=== PATIENT | male | born 1940 | race Caucasian/White ===

== ENCOUNTER 2018-05-20 01:49 | Outpatient (CLI) | payer MEDICARE, BC, SELFPAY ==
[2018-05-20 09:08] LABS: Hemoglobin A1C 6.1 % (4.5-6.2)
[2018-05-20 09:30] LABS: COMMENT (LAB VIEW ONLY) 95.18 mg/dL; Microalb ug/mg Crea 5.4 ug/mg Cr
[2018-05-20 09:34] LABS: ALT 33 U/L (12-78); AST 20 U/L (15-37); Alkaline Phosphatase 82 U/L (46-116); BUN 20 mg/dL (7-18); Bilirubin, Total 0.7 mg/dL (0.2-1.0); CREATININE 0.77 mg/dL (0.70-1.30); Calcium 8.9 mg/dL (8.5-10.1); Chloride 101 mmol/L (98-107); Cholesterol 134 mg/dL (50-200); Glucose 122 mg/dL (70-100); HDL Cholesterol 33 mg/dL (40-60); LDL CHOLESTEROL 84 mg/dL (<100); Potassium 4.4 mmol/L (3.5-5.1); Sodium 138 mmol/L (136-145); Triglyceride 86 mg/dL (30-150)
== END 2018-05-20 02:09 ==
PROVIDERS: PCP Family Medicine; Visit Provider Family Medicine
DX: E11.9 Type 2 diabetes mellitus without complications (principal); I10 Essential (primary) hypertension; E78.5 Hyperlipidemia, unspecified
CPT/HCPCS: 36415; 80053; 80061; 83721; 82043; 82570; 83036

== ENCOUNTER 2018-06-03 00:49 | Outpatient (CLI) | payer MEDICARE, BC, SELFPAY ==
--- NOTE | 2018-06-03 13:25 | MERGE_ITS ---
*[facility]* *[facility]* [address] [place] [address] Date of study: 06/03/2018 Transthoracic Echocardiography M-mode, complete 2D, complete spectral Doppler, and color Doppler *STUDY CONCLUSIONS* Summary: 1. Left ventricle: The cavity size was normal. Wall thickness was increased in a pattern of mild LVH. Systolic function was normal. The estimated ejection fraction was 60-65%. Wall motion was normal; there were no regional wall motion abnormalities. Findings consistent with diastolic dysfunction. Doppler parameters are consistent with high ventricular filling pressure. 2. Aortic valve: Trileaflet; mildly thickened, mildly calcified leaflets. There was mild stenosis. Peak velocity (S): 2.3m/sec. Mean gradient (S): 10.8mm Hg. Valve area (VTI): 1.6cm^2. 3. Mitral valve: Mildly calcified annulus. Mildly thickened leaflets. There was mild regurgitation. 4. Left atrium: The atrium was mildly dilated. 5. Right ventricle: The cavity size was normal. Wall thickness was normal. Systolic function was normal. *PATIENT PRESENTATION* Height: 177.8cm ((70in) ) S/D Pressure: 137 / 65 Weight: 85.3kg ((187.6lb) ) BSA: 2.07m^2 Test start time: 01:38 PM. Test stop time: 02:38 PM. ORDERING Domonique Garcia REFERRING Domonique Garcia PERFORMING Unknown PERFORMING [facility] LEAD RECREATION ASSISTANT RT Brianne KumarR)(OLGA)SHARAN *PROCEDURE DATA* Procedure information: The patient was identified by two identifiers. This study was interpreted by [facility]. Pertinent images and digital data are archived for permanent storage and are available for subsequent review. Comparison was made to the study of 02/27/2012. Study status: Routine. Transthoracic echocardiography. M-mode, complete 2D, complete spectral Doppler, and color Doppler. A Transthoracic Echocardiogram was performed. Scanning was performed from the parasternal, apical, subcostal, and suprasternal notch acoustic windows. Images were obtained using an [id number] cardiac ultrasound machine. Image quality was adequate. Study completion: The patient tolerated the procedure well. There were no complications. History: PMH: SOB, REYES, HTN. *CARDIAC ANATOMY* Left ventricle: The cavity size was normal. Wall thickness was increased in a pattern of mild LVH. Systolic function was normal. The estimated ejection fraction was 60-65%. Wall motion was normal; there were no regional wall motion abnormalities. Findings consistent with diastolic dysfunction. Doppler parameters are consistent with high ventricular filling pressure. Aortic valve: Trileaflet; mildly thickened, mildly calcified leaflets. Valve mobility was restricted. Doppler: There was mild stenosis. There was no significant regurgitation. VTI ratio of LVOT to aortic valve: 0.5. Valve area (VTI): 1.6cm^2. Indexed valve area (VTI): 0.8cm^2/m^2. Peak velocity ratio of LVOT to aortic valve: 0.43. Valve area (Vmax): 1.3cm^2. Indexed valve area (Vmax): 0.6cm^2/m^2. Mean velocity ratio of LVOT to aortic valve: 0.46. Valve area (Vmean): 1.4cm^2. Indexed valve area (Vmean): 0.7cm^2/m^2. Mean gradient (S): 10.8mm Hg. Peak gradient (S): 21mm Hg. Aorta: Aortic root: The aortic root was normal in size. Ascending aorta: The ascending aorta was normal in size. Mitral valve: Mildly calcified annulus. Mildly thickened leaflets. Mobility was not restricted. Doppler: Transvalvular velocity was within the normal range. There was no evidence for stenosis. There was mild regurgitation. Valve area by pressure half-time: 4.1cm^2. Indexed valve area by pressure half-time: 2cm^2/m^2. Peak gradient (D): 4.7mm Hg. Left atrium: The atrium was mildly dilated. Right ventricle: The cavity size was normal. Wall thickness was normal. Systolic function was normal. Pulmonic valve: Structurally normal valve. Doppler: Transvalvular velocity was within the normal range. There was no evidence for stenosis. There was no significant regurgitation. Peak gradient (S): 8.4mm Hg. Tricuspid valve: Structurally normal valve. Doppler: Transvalvular velocity was within the normal range. There was no evidence for stenosis. There was trivial regurgitation. Pulmonary artery: Pulmonary systolic pressure was within the normal range, in the range of 25mm Hg to 30mm Hg. Right atrium: The atrium was normal in size. Pericardium: There was no pericardial effusion. Systemic veins: Inferior vena cava: Not well visualized. The vessel was patent and normal in size. The respirophasic diameter changes were blunted (less than 50%). Baseline ECG: Normal sinus rhythm. Measurements Left ventricle Value Reference LV ID, ED, PLAX 4.1 cm 3.5 - 6.0 LV ID, ES, PLAX 2.8 cm 2.1 - 4.0 LV PW thickness, ED, PLAX 1.3 cm LV end-diastolic volume, 1-p A2C 66 ml LV ejection fraction, 1-p A2C 63 % LV end-diastolic volume, 1-p A4C 58 ml LV ejection fraction, 1-p A4C 55 % LV e', lateral 0.084 m/sec LV E/e', lateral 13 LV e', medial 0.063 m/sec LV E/e', medial 17 LV e', average 0.073 m/sec LV E/e', average 15 Ventricular septum Value Reference IVS thickness, ED, PLAX 1.3 cm LVOT Value Reference LVOT ID, A-P 2.0 cm LVOT area 3.1 cm^2 LVOT peak velocity, S 0.99 m/sec LVOT mean velocity, S 0.72 m/sec LVOT VTI, S 21.7 cm LVOT peak gradient, S 3.9 mm Hg LVOT mean gradient, S 2.3 mm Hg Stroke volume (SV), LVOT DP 67 ml Stroke index (SV/bsa), LVOT DP 32 ml/m^2 Aortic valve Value Reference Aortic valve peak velocity, S 2.3 m/sec Aortic valve mean velocity, S 1.56 m/sec Aortic valve VTI, S 43.0 cm Aortic mean gradient, S 10.8 mm Hg Aortic peak gradient, S 21 mm Hg VTI ratio, LVOT/AV 0.5 Aortic valve area, VTI 1.6 cm^2 Velocity ratio, peak, LVOT/AV 0.43 Aortic valve area, peak velocity 1.3 cm^2 Velocity ratio, mean, LVOT/AV 0.46 Aortic valve area, mean velocity 1.4 cm^2 Aortic valve area/bsa, mean velocity 0.7 cm^2/m^2 Aorta Value Reference Aortic root ID, ED 3.4 cm Ascending aorta ID, A-P, S 3.2 cm Left atrium Value Reference LA ID, A-P, ES 4.9 cm LA ID/bsa, A-P (H) 2.4 cm/m^2 <=2.2 LA area, ES, A4C 23.2 cm^2 8.8 - 23.4 LA area, ES, A2C 19 cm^2 LA volume/bsa, ES, 1-p A4C 37 ml/m^2 LA volume, ES, 2-p 62 ml LA volume/bsa, ES, 2-p 30 ml/m^2 LA/aortic root ratio 1.44 Mitral valve Value Reference Mitral E-wave peak velocity 1.08 m/sec Mitral A-wave peak velocity 1.08 m/sec Mitral deceleration time 186 ms 150 - 230 Mitral pressure half-time 54 ms Mitral peak gradient, D 4.7 mm Hg Mitral E/A ratio, peak 1 Mitral valve area, PHT, DP 4.1 cm^2 Pulmonary veins Value Reference Pulmonary vein peak velocity, S 0.6 m/sec Pulmonary vein peak velocity, D 0.68 m/sec Pulmonary vein velocity ratio, peak, 0.87 S/D Pulmonary vein A-wave reversal peak 0.42 m/sec velocity Pulmonary vein A-wave reversal 160 ms duration Tricuspid valve Value Reference Tricuspid regurg peak velocity 2.5 m/sec Tricuspid peak RV-RA gradient 24.5 mm Hg Right atrium Value Reference RA area, ES, A4C 17.2 cm^2 8.3 - 19.5 Pulmonic valve Value Reference Pulmonic peak gradient, S 8.4 mm Hg Legend: (L) and (H) luli values outside specified reference range. I have personally reviewed the images and have reviewed and edited the reported findings. Electronically signed by Jame Middleton 06/03/2018 15:45
== END 2018-06-03 01:09 ==
PROVIDERS: PCP Family Medicine; Visit Provider Family Medicine
DX: I10 Essential (primary) hypertension (principal); R06.02 Shortness of breath; R06.09 Other forms of dyspnea; I35.0 Nonrheumatic aortic (valve) stenosis; I34.0 Nonrheumatic mitral (valve) insufficiency; I50.30 Unspecified diastolic (congestive) heart failure
CPT/HCPCS: 93306

== ENCOUNTER 2018-08-03 10:59 | Emergency (ER) | payer MEDICARE, BC, SELFPAY ==
[2018-08-03 11:07] VITALS: BP 160/87; PULSE 102; RESP 16; TEMP 37; O2SAT 96
--- NOTE | 2018-08-03 11:24 | W.ED.GENAD ---
Discharge Plan Disposition Patient Disposition: HOME Discharge Details Chief Complaint: Orthopedic Clinical Impression: Acute pain of left foot Primary Care Provider: Domonique Garcia ED Provider: Johnson Saavedra Home Meds and New Rx's Prescriptions: New prednisone 20 mg tablet 40 mg PO DAILY Qty: 8 RF: 0 colchicine 0.6 mg tablet 0.6 mg PO TID PRN PRN (Reason: gout) Qty: 15 RF: 0 Continued Gold Shepherd Triple Action 226 GM lotion 226 gm Topical DAILY PRNRF: 0 blood-glucose meter 1 EACH misc 1 ea Miscellaneous DAILY Qty: 1 RF: 0 triamcinolone acetonide 80 GM ointment 5 gm Topical BID PRNQty: 80 RF: 2 fluorouracil 40 GM cream 40 gm Topical BID RF: 0 cholecalciferol (vitamin D3) [Vitamin D3] 2,000 UNIT capsule 2,000 unit PO DAILY RF: 0 glipizide 5 MG tablet extended release 24hr 2 tab-cap PO DAILY Qty: 180 RF: 12 Ketoconazole 15 GM CREAM..G. 15 gm Topical PRN RF: 0 lisinopril 2.5 MG tablet 2.5 mg PO DAILY Qty: 90 RF: 11 atorvastatin 40 MG tablet 40 mg PO HS Qty: 90 RF: 12 furosemide 20 MG tablet 20 mg PO DAILY Qty: 90 RF: 12 metformin 500 MG tablet extended release 24hr 1,000 mg PO BID Qty: 360 RF: 12 blood sugar diagnostic [Blood Glucose Test] strip 1 ea Miscellaneous BID Qty: 100 RF: 3 lancets [Lancets,Ultra Thin] 26 gauge misc 1 ea Miscellaneous DAILY Qty: 100 RF: 4 Discharge Instructions Instructions: Gout (ED), Foot Sprain (ED) Additional Instructions: Please take colchicine as prescribed. Take prednisone as prescribed. Please contact your primary care physician to arrange follow-up. Return to the ER for any worsening or new concerning symptoms including increased pain, redness or inflammation. Referrals: Domonique Garcia MD, [place] [Primary Care Provider] - Medical Decision Making 77yo m with remote history of gout, here with left lateral foot pain and inflammation after what sounds like a mild hyper plantarflexion injury. X-ray of the foot reviewed and interpreted by me: No fracture present. History and exam not consistent with infectious process. Suspect inflammatory arthritis vs sprain. Patient has history of gout. Will treat with ortho shoe, crutches, prednisone and colchicine. ESR nildly elevated. CRP and WBC nl. Uric acid pending - lab equipment malfunctioning. Will have patient follow-up with PCP. Burst prednisone and colchine prescribed. Usual and customary discharge instructions were provided. HPI General Mode of arrival: ambulatory. Date/Time Provider Initiated Documentation: 08/03/18 11:11. Limitations to Documentation: no limitations. Information obtained by: patient. HPI Narrative: 77-year-old male with history of diabetes that is well controlled, peripheral neuropathy, remote history of gout, here with left foot pain. Patient notes that he believes he injured his foot a couple days ago. He states he was on his knees working and when he stood up he thinks he hyper plantarflexed his foot. He did not have significant pain initially. Following night he developed pain in his dorsal lateral right foot. Pain is persisted. Pain is worse with walking and has been using a cane. He has some associated swelling in the area. Related Data Home Medications Medication Instructions Recorded Confirmed Gold Shepherd Triple Action 226 gm TOPICAL DAILY PRN 04/20/13 08/03/18 blood-glucose meter #1 ea 12/21/14 05/25/18 triamcinolone acetonide 5 gm TOPICAL BID PRN #80 ml 01/22/16 08/03/18 fluorouracil 40 gm TOPICAL BID script 03/25/16 08/03/18 cholecalciferol (vitamin D3) 2,000 unit PO DAILY 11/18/16 08/03/18 [Vitamin D3] glipizide 2 tab-cap PO DAILY #180 tab-cap 10/02/17 08/03/18 Ketoconazole 15 gm TOPICAL PRN 11/17/17 08/03/18 atorvastatin 40 mg PO HS #90 tab-cap 11/17/17 08/03/18 furosemide 20 mg PO DAILY #90 tab-cap 11/17/17 08/03/18 lisinopril 2.5 mg PO DAILY #90 tab-cap 11/17/17 08/03/18 metformin 1,000 mg PO BID #360 tab-cap 11/17/17 08/03/18 blood sugar diagnostic strips #100 strip 05/26/18 lancets 26 gauge #100 ea 05/26/18 colchicine 0.6 mg PO TID PRN PRN #15 tab 01/21/19 prednisone 40 mg PO DAILY #8 tab 08/03/18 Previous Rx's Medication Instructions Recorded glipizide 2 tab-cap PO DAILY #180 tab-cap 10/02/17 atorvastatin 40 mg PO HS #90 tab-cap 11/17/17 furosemide 20 mg PO DAILY #90 tab-cap 11/17/17 lisinopril 2.5 mg PO DAILY #90 tab-cap 11/17/17 metformin 1,000 mg PO BID #360 tab-cap 11/17/17 blood sugar diagnostic strips #100 strip 05/26/18 lancets 26 gauge #100 ea 05/26/18 colchicine 0.6 mg PO TID PRN PRN #15 tab 08/03/18 prednisone 40 mg PO DAILY #8 tab 08/03/18 Allergies Allergy/AdvReac Type Severity Reaction Status Date / Time naproxen Allergy Severe INFLAMMED Unverified 08/03/18 11:10 LIVER diazepam Allergy Unknown Unverified 08/03/18 11:10 General Stated Complaint: Orthopedic SHANNON: 4 Review of Systems Constitutional Denies fever(s) Musculoskeletal Reports as per [facility]PI [facility] Medical History Neck pain (Chronic 06/12/04) Low back pain (Chronic 06/12/01) Lactose intolerance (Chronic 11/15/10) Idiopathic peripheral neuropathy (Chronic) Hyperlipidemia (Chronic) Gastritis (Chronic 02/27/15) Family history of GI malignancy (Chronic) Essential hypertension (Chronic 04/07/13) Diverticulosis of colon without diverticulitis (Chronic) Diabetes mellitus (Chronic 12/03/12) Chronic ischemic heart disease (Chronic 10/30/12) Cervical disc prolapse with radiculopathy (Chronic) Hylton's esophagus (Chronic) Surgical History AORTIC BYPASS (~1989) Extraction of cataract (~08/2013) Repair of inguinal hernia (~1983) Spinal Fusion (~2011) Family History Mother Personal history of malignant neoplasm Heart disease Father Essential hypertension Heart disease Hyperlipidemia Sister Diabetes Essential hypertension Personal history of malignant neoplasm Heart disease Mental disorder Sister Diabetes Essential hypertension Heart disease Hyperlipidemia Brother Alcohol abuse Brother Heart disease Daughter Hyperlipidemia Social History household members: spouse duration: < 15 minutes/day Smoking/Tobacco Use Status: Never alcohol intake: current Alcohol type: beer and wine substance use type: does not use tequila/gnosticism: Jainism special tequila needs: No Exam Const General: cooperative and no acute distress HENMT Mouth: moist mucous membranes Eyes Conjunctivae: normal conjunctivae Sclera: normal sclerae Resp Auscultation: clear to auscultation bilaterally, no rales, no rhonchi and no wheezes Cardio Jugular venous pressure: no JVD Rate: regular rate and not tachycardic Rhythm: regular rhythm GI Palpation: soft, not firm, no guarding, no masses, not rigid and nontender Skin General skin exam: erythema (over base left 5th MT) Neuro General: alert, awake, oriented x3 and tone normal Extrem General: no edema Left lower extremity: foot Details: tenderness Location: of the lateral foot Location: at the base of the 5th metatarsal, vascular exam Details: dorsalis pedis pulse present (strong) and other (ttp lateral foot over 5th MT with mild swelling ) Course Vital Signs Temperature 37 C 08/03/18 11:07 Pulse 102 H 08/03/18 11:07 Respiratory Rate 16 08/03/18 11:07 Blood Pressure 160/87 H 08/03/18 11:07 Pulse Oximetry 96 08/03/18 11:07 Temperature 37 C 08/03/18 11:07 Temperature Source Skin 08/03/18 11:07 Pulse 102 H 08/03/18 11:07 Respiratory Rate 16 08/03/18 11:07 Respiratory Effort Non-Labored 08/03/18 11:07 Blood Pressure 160/87 H 08/03/18 11:07 Pulse Oximetry 96 08/03/18 11:07 Oxygen Delivery Method Room Air 08/03/18 11:07 Oxygen Flow Rate 0 08/03/18 11:07 Pain Level 10 08/03/18 11:13
[2018-08-03] MEDS: Ibuprofen 600 MG TAB PO (11:34)
--- NOTE | 2018-08-03 11:35 | NUR.NOTE ---
patient medciated per MD order Nursing Note:
--- NOTE | 2018-08-03 11:46 | DI.RAD_ITS ---
SYMPTOMS/DIAGNOSIS: PAIN AND ERYTHEMA OVER 5TH METATARSAL, MILD TRAUMA, REMOTE GOUT LEFT FOOT: Three views. No acute fracture or dislocation is identified. IMPRESSION: No acute abnormality.
--- NOTE | 2018-08-03 12:15 | NUR.NOTE ---
glucose 150mg/dL Nursing Note:
[2018-08-03] MEDS: predniSONE 20 MG TAB 40 MG PO (12:21)
[2018-08-03] MEDS: Colchicine 0.6 MG TAB PO (12:21)
--- NOTE | 2018-08-03 12:22 | NUR.NOTE ---
patient medicated per MD order Nursing Note:
[2018-08-03 12:55] LABS: Abs Immature Grans 0.01 k/cumm (0.0-0.09); Absolute Basophil Count 0.03 k/cumm (0.0-0.2); Absolute Eosinophil Count 0.26 k/cumm (0.0-0.7); Absolute Lymphocyte Count 1.13 k/cumm (1.2-3.4); Absolute Monocyte Count 0.67 k/cumm (0.11-0.7); Absolute Neutrophil Count 4.44 k/cumm (1.2-6.7); Basophils % 0.5; HGB 14.6 g/dL (13.5-17.5); Immature Grans % 0.2; Lymphocytes % 17.3; Mean Corp. HGB Concentration 34.8 g/dL (32.0-36.0); Mean Corpuscular Hemoglobin 32.2 pg (27.0-33.0); Mean Corpuscular Volume 92.7 fL (80-95); Mean Platelet Volume 10.1 fL (8.0-11.0); Monocytes % 10.2; Neutrophils % 67.8; Platelet Count 189 x1000/uL (130-400); RBC 4.53 m/cumm (4.50-6.00); RBC Distribution Width 12.6 % (11.8-14.1); White Blood Cell Count 6.54 k/cumm (4.4-10.8)
[2018-08-03 12:56] LABS: C-Reactive Protein 0.09 mg/dL (0.0-0.3)
[2018-08-03 13:33] LABS: ESR 22 MM/HR (1-20)
[2018-08-03 14:31] LABS: Uric Acid 8.6 mg/dL (3.5-7.2)
== END 2018-08-03 13:52 | disposition home or self-care (01) ==
PROVIDERS: Emergency Provider Student in an Organized Health Care Education/Training Program; PCP Family Medicine
DX: M79.672 Pain in left foot (principal); X50.9XXA Other and unspecified overexertion or strenuous movements or postures, initial encounter; E11.9 Type 2 diabetes mellitus without complications; Z79.84 Long term (current) use of oral hypoglycemic drugs; I10 Essential (primary) hypertension
CPT/HCPCS: 36415; 82947; 85652; 99284; 73630; 84550; 85025; 86140; E0114; J7512

== ENCOUNTER 2018-09-15 01:28 | Outpatient (CLI) | payer MEDICARE, BC, SELFPAY ==
[2018-09-15 09:08] LABS: Uric Acid 4.6 mg/dL (3.5-7.2)
[2018-09-15 09:23] LABS: Hemoglobin A1C 6.2 % (4.5-6.2)
== END 2018-09-15 01:48 ==
PROVIDERS: PCP Family Medicine; Visit Provider Family Medicine
DX: E11.9 Type 2 diabetes mellitus without complications (principal); M10.9 Gout, unspecified
CPT/HCPCS: 36415; 83036; 84550

== ENCOUNTER 2018-11-19 02:09 | Outpatient (CLI) | payer MEDICARE, BC, SELFPAY ==
[2018-11-19 09:16] LABS: ALT 33 U/L (12-78); AST 16 U/L (15-37); Albumin 3.9 g/dL (3.4-5.0); Alkaline Phosphatase 74 U/L (46-116); Anion Gap 8.5 mmol/L (3-11); BUN 20 mg/dL (7-18); Bilirubin, Total 0.5 mg/dL (0.2-1.0); CO2 29.5 mmol/L (21.0-32.0); CREATININE 0.65 mg/dL (0.70-1.30); Calcium 8.9 mg/dL (8.5-10.1); Chloride 102 mmol/L (98-107); Glucose 101 mg/dL (70-100); Potassium 4.3 mmol/L (3.5-5.1); Sodium 140 mmol/L (136-145); Total Protein 6.8 g/dL (6.4-8.2); Uric Acid 3.6 mg/dL (3.5-7.2)
== END 2018-11-19 02:29 ==
PROVIDERS: PCP Family Medicine; Visit Provider Family Medicine
DX: E11.9 Type 2 diabetes mellitus without complications (principal); E78.5 Hyperlipidemia, unspecified; M10.9 Gout, unspecified
CPT/HCPCS: 36415; 80053; 83036; 84550

== ENCOUNTER 2019-03-17 01:48 | Outpatient (CLI) | payer MEDICARE, BC, SELFPAY ==
[2019-03-17 09:03] LABS: Hemoglobin A1C 6.5 % (4.5-6.2)
[2019-03-17 10:07] LABS: Uric Acid 4.2 mg/dL (3.5-7.2)
== END 2019-03-17 02:08 ==
PROVIDERS: PCP Family Medicine; Visit Provider Family Medicine
DX: E11.9 Type 2 diabetes mellitus without complications (principal); M10.9 Gout, unspecified
CPT/HCPCS: 36415; 83036; 84550

== ENCOUNTER → 2019-12-31 10:27 | Outpatient (BNVA) | payer MEDICARE, BC, SELFPAY | PROVIDERS: PCP Family Medicine; Referring Provider Family Medicine; Visit Provider Urology | DX: R69 Illness, unspecified (principal) ==

== ENCOUNTER 2019-12-31 12:02 | Outpatient (CLI) | payer MEDICARE, BC, SELFPAY | END 2019-12-31 12:22 | PROVIDERS: PCP Family Medicine; Visit Provider Urology | DX: R33.8 Other retention of urine (principal); Z46.6 Encounter for fitting and adjustment of urinary device | CPT/HCPCS: 51702; 99201; 99213 ==

== ENCOUNTER 2019-12-31 12:16 | Outpatient (REF) | payer MEDICARE, BC, SELFPAY ==
[2019-12-31 12:38] LABS: Hemoglobin A1C 6.3 % (3.8-5.6)
[2019-12-31 12:48] LABS: ALT 35 U/L (16-63); AST 17 U/L (15-37); Albumin 3.9 g/dL (3.4-5.0); Alkaline Phosphatase 81 U/L (46-116); Anion Gap 12.2 mmol/L (3-11); BUN 12 mg/dL (7-18); Bilirubin, Total 0.7 mg/dL (0.2-1.0); CO2 25.8 mmol/L (21.0-32.0); CREATININE 0.67 mg/dL (0.70-1.30); Calcium 8.4 mg/dL (8.5-10.1); Chloride 103 mmol/L (98-107); Glucose 136 mg/dL (74-106); Potassium 3.1 mmol/L (3.5-5.1); Sodium 141 mmol/L (136-145); Total Protein 7.3 g/dL (6.4-8.2)
[2019-12-31 13:01] LABS: Cholesterol 186 mg/dL (<200); HDL Cholesterol 34 mg/dL (40-60); Triglyceride 93 mg/dL (<150)
[2019-12-31 13:02] LABS: Calculated LDL 134 mg/dL (<100)
== END 2019-12-31 12:36 ==
LOC: LBN 12:16
PROVIDERS: Urology; PCP Family Medicine; Visit Provider Family Medicine
DX: R33.8 Other retention of urine (principal); E11.9 Type 2 diabetes mellitus without complications; I10 Essential (primary) hypertension; I25.9 Chronic ischemic heart disease, unspecified
CPT/HCPCS: 80053; 80061; 83036; 84550

== ENCOUNTER → 2020-01-03 09:22 | Outpatient (BNVA) | payer MEDICARE, BC, SELFPAY | PROVIDERS: PCP Family Medicine; Referring Provider Family Medicine; Visit Provider Nurse Practitioner Gerontology | DX: R33.8 Other retention of urine (principal); E11.42 Type 2 diabetes mellitus with diabetic polyneuropathy; Z79.84 Long term (current) use of oral hypoglycemic drugs | CPT/HCPCS: 99204; 99215 ==

== ENCOUNTER → 2020-01-11 08:26 | Outpatient (BNVA) | payer MEDICARE, BC, SELFPAY | PROVIDERS: PCP Family Medicine; Referring Provider Family Medicine; Visit Provider Nurse Practitioner Gerontology | DX: R33.8 Other retention of urine (principal); Z46.6 Encounter for fitting and adjustment of urinary device | CPT/HCPCS: 99213 ==

== ENCOUNTER → 2020-02-08 08:24 | Outpatient (BNVA) | payer MEDICARE, BC, SELFPAY | PROVIDERS: PCP Family Medicine; Referring Provider Family Medicine; Visit Provider Urology | DX: R33.8 Other retention of urine (principal); N47.5 Adhesions of prepuce and glans penis | CPT/HCPCS: 99213 ==

== ENCOUNTER → 2020-02-24 12:49 | Outpatient (BNVA) | payer MEDICARE, BC, SELFPAY | PROVIDERS: PCP Family Medicine; Referring Provider Family Medicine; Visit Provider Nurse Practitioner Gerontology | DX: N47.5 Adhesions of prepuce and glans penis (principal); R33.8 Other retention of urine; E11.9 Type 2 diabetes mellitus without complications; R60.0 Localized edema | CPT/HCPCS: 99213 ==

== ENCOUNTER → 2020-04-13 10:54 | Outpatient (BNVA) | payer MEDICARE, BC, SELFPAY | PROVIDERS: PCP Family Medicine; Referring Provider Family Medicine; Visit Provider Physical Therapy Assistant | DX: K22.70 Barrett's esophagus without dysplasia (principal); Z86.010 Personal history of colon polyps; E11.9 Type 2 diabetes mellitus without complications; I10 Essential (primary) hypertension; Z79.84 Long term (current) use of oral hypoglycemic drugs | CPT/HCPCS: 99213 ==

== ENCOUNTER 2020-04-24 01:33 | Outpatient (CLI) | payer MEDICARE, BC, SELFPAY ==
[2020-04-25 17:37] LABS: COVID-19 RT-PCR Result NEGATIVE (Negative)
== END 2020-04-24 01:53 ==
PROVIDERS: PCP Family Medicine; Visit Provider Surgery
DX: Z11.59 Encounter for screening for other viral diseases (principal); Z01.818 Encounter for other preprocedural examination
CPT/HCPCS: U0003

== ENCOUNTER 2020-05-22 02:11 | Outpatient (CLI) | payer MEDICARE, BC, SELFPAY ==
[2020-05-22 12:40] LABS: ALT 38 U/L (16-63); AST 22 U/L (15-37); Albumin 3.8 g/dL (3.4-5.0); Alkaline Phosphatase 81 U/L (46-116); BUN 14 mg/dL (7-18); Bilirubin, Total 0.7 mg/dL (0.2-1.0); CREATININE 0.82 mg/dL (0.70-1.30); Calcium 8.1 mg/dL (8.5-10.1); Chloride 103 mmol/L (98-107); Glucose 173 mg/dL (74-106); Potassium 3.5 mmol/L (3.5-5.1); Sodium 142 mmol/L (136-145); Total Protein 6.8 g/dL (6.4-8.2); Uric Acid 4.3 mg/dL (3.5-7.2)
[2020-05-22 12:44] LABS: Hemoglobin A1C 6.6 % (<5.7)
== END 2020-05-22 02:31 ==
PROVIDERS: PCP Family Medicine; Visit Provider Family Medicine
DX: I10 Essential (primary) hypertension (principal); E11.9 Type 2 diabetes mellitus without complications; M10.9 Gout, unspecified
CPT/HCPCS: 36415; 80053; 83036; 84550

== ENCOUNTER 2020-05-29 14:32 | Outpatient (REF) | payer MEDICARE, BC, SELFPAY ==
[2020-05-29 21:54] LABS: COMMENT (LAB VIEW ONLY) 112.82 mg/dL; Microalb ug/mg Crea 5.2 ug/mg Cr
== END 2020-05-29 14:52 ==
LOC: LBN 14:32
PROVIDERS: PCP Family Medicine; Visit Provider Family Medicine
DX: E11.9 Type 2 diabetes mellitus without complications (principal)
CPT/HCPCS: 82043; 82570

== ENCOUNTER 2020-05-30 09:06 | Outpatient (CLI) | payer MEDICARE, BC, SELFPAY | END 2020-05-30 09:26 | PROVIDERS: PCP Family Medicine; Visit Provider Family Medicine | DX: R00.2 Palpitations (principal) | CPT/HCPCS: 93225 ==

== ENCOUNTER 2020-06-01 12:58 | Outpatient (CLI) | payer MEDICARE, BC, SELFPAY ==
--- NOTE | 2020-06-01 15:06 | W.HOLTRPT ---
Date of service: 06/01/20 Time of Service: 15:06 Holter Monitor Report Referring Provider:: Domonique Garcia Indications:: Palpitations Holter Monitor Note: This is a 48-hour Holter monitor, reportedly ordered for palpitations The rhythm throughout was atrial fibrillation; average heart rate was 65, minimum 53 and maximum 96 There were rare ventricular ectopic beats Longest R-R interval was 2.63 seconds No patient symptoms were reported
== END 2020-06-01 13:18 ==
PROVIDERS: PCP Family Medicine; Visit Provider Family Medicine
DX: R00.2 Palpitations (principal); I48.91 Unspecified atrial fibrillation
CPT/HCPCS: 93227; 93226

== ENCOUNTER 2021-01-24 15:11 | Outpatient (CLI) | payer MEDICARE, BC, SELFPAY ==
[2021-01-24 09:32] LABS: Hemoglobin A1C 6.7 % (<5.7)
[2021-01-24 09:49] LABS: ALT 29 U/L (16-63); AST 13 U/L (15-37); Albumin 3.7 g/dL (3.4-5.0); Alkaline Phosphatase 84 U/L (46-116); Anion Gap 8.3 mmol/L (3-11); BUN 19 mg/dL (7-18); Bilirubin, Total 0.6 mg/dL (0.2-1.0); CO2 27.7 mmol/L (21.0-32.0); CREATININE 0.9 mg/dL (0.70-1.30); Chloride 105 mmol/L (98-107); Glucose 130 mg/dL (74-106); Potassium 4.7 mmol/L (3.5-5.1); Sodium 141 mmol/L (136-145); Total Protein 6.8 g/dL (6.4-8.2); Uric Acid 4.3 mg/dL (3.5-7.2)
[2021-01-24 20:55] LABS: Calculated LDL 90 mg/dL (<100); Cholesterol 141 mg/dL (<200); HDL Cholesterol 31 mg/dL (40-60); Triglyceride 100 mg/dL (<150)
== END 2021-01-24 15:12 | disposition home or self-care (01) ==
LOC: LBO 15:13
PROVIDERS: PCP Family Medicine; Visit Provider Family Medicine
DX: E11.9 Type 2 diabetes mellitus without complications (principal); I10 Essential (primary) hypertension; M10.9 Gout, unspecified; I48.91 Unspecified atrial fibrillation; I25.9 Chronic ischemic heart disease, unspecified; E78.5 Hyperlipidemia, unspecified
CPT/HCPCS: 36415; 80053; 80061; 83036; 84550

== ENCOUNTER 2021-02-08 09:39 | Outpatient (CLI) | payer MEDICARE, BC, SELFPAY ==
--- NOTE | 2021-02-08 09:30 | DI.CT_ITS ---
Exam(s) CT HEAD WO EXAM: CT HEAD WO CLINICAL HISTORY: weaknees, dizziness R53.1 WEAKNESS. TECHNIQUE: Imaging Protocol: Axial computed tomography images with coronal and sagittal reformatted images were created and reviewed COMPARISON: No exams were available for comparison FINDINGS: There are no skull fractures. There is complete opacification of the maxillary sinus. There is muc osal thickening also evident in the right maxillary sinus. No bone destruction evident. Sphenoid si nuses are clear as are the ethmoid air cells and frontal sinuses. Mastoid air cells are also well ae rated. There is vascular calcification of both vertebral arteries at the skull base. Also calcification not ed in the internal carotid arteries at the skull base-cavernous sinuses. There is no evidence of intracranial hemorrhage, mass effect, or shift of midline structures. There are no extra-axial fluid collections. The ventricles are not enlarged or shifted and there is no blo od within the ventricular system nor within the basal cisterns. IMPRESSION: No acute intracranial findings on this noninfused CT scan of the brain. Vascular calcification at the skull base as described above. RADIATION DOSE DELIVERED: 795.89mGy.cm Total DLP DATA REPOSITORY: All CT scans at this facility are submitted to the National Radiology Data Registry (NRDR) Dose Index Registry (DIR) with the [employer] (ACR). RADIATION OPTIMIZATION: All CT scans at this facility use at least one of these dose optimization te chniques: automated exposure control; mA and/or kV adjustment per patient size (includes targeted exa ms where dose is matched to clinical indication); or iterative reconstruction.
== END 2021-02-08 09:59 ==
PROVIDERS: PCP Family Medicine; Visit Provider Family Medicine
DX: R53.1 Weakness (principal); R42 Dizziness and giddiness; R93.0 Abnormal findings on diagnostic imaging of skull and head, not elsewhere classified; E11.9 Type 2 diabetes mellitus without complications; K22.70 Barrett's esophagus without dysplasia
CPT/HCPCS: 36415; 80053; 85027; 85652; 70450; 81003; 83036; 83735

== ENCOUNTER 2021-02-08 09:40 | Outpatient (CLI) | payer MEDICARE, BC, SELFPAY ==
[2021-02-08 12:31] LABS: ESR 22 mm/hr (0-20); HCT 47.2 % (40.0-50.0); HGB 15.8 g/dL (13.5-17.5); MCHC 33.5 % (32.0-36.0); MCV 95.5 fL (80-95); MPV 10.3 fL (8.0-11.0); Platelet Count 198 10^3/uL (130-400); RBC 4.94 10^6/uL (4.36-5.78); RDW 13.2 % (11.8-14.1); RDW-SD 46.7 fL; WBC 7.57 10^3/uL (4.4-10.8)
[2021-02-08 12:37] LABS: Bilirubin Negative (Negative); Blood Negative (Negative); Clarity Clear (Clear); Glucose Negative (Negative); Ketones Trace mg/dL (Negative); Leukocyte Esterase Negative (Negative); Nitrite Negative (Negative); Specific Gravity 1.025 (1.005-1.025)
[2021-02-08 12:58] LABS: ALT 31 U/L (16-63); AST 18 U/L (15-37); Albumin 4.1 g/dL (3.4-5.0); Alkaline Phosphatase 104 U/L (46-116); Anion Gap 10.5 mmol/L (3-11); BUN 18 mg/dL (7-18); Bilirubin, Total 0.8 mg/dL (0.2-1.0); CO2 28.5 mmol/L (21.0-32.0); CREATININE 0.9 mg/dL (0.70-1.30); Calcium 8.7 mg/dL (8.5-10.1); Chloride 103 mmol/L (98-107); Glucose 152 mg/dL (74-106); Magnesium 1.6 mg/dL (1.8-2.4); Potassium 3.8 mmol/L (3.5-5.1); Sodium 142 mmol/L (136-145); Total Protein 7.5 g/dL (6.4-8.2)
[2021-02-08 13:05] LABS: Hemoglobin A1C 6.6 % (<5.7)
== END 2021-02-08 09:41 | disposition home or self-care (01) ==
LOC: LOS 09:41
PROVIDERS: PCP Family Medicine; Referring Provider Family Medicine; Visit Provider Family Medicine
DX: E11.9 Type 2 diabetes mellitus without complications (principal); R53.1 Weakness; R42 Dizziness and giddiness; K22.70 Barrett's esophagus without dysplasia
CPT/HCPCS: 36415; 80053; 85027; 85652; 81003; 83036; 83735

== ENCOUNTER 2021-06-28 02:27 | Outpatient (CLI) | payer MEDICARE, BC, SELFPAY ==
[2021-06-28 10:23] LABS: Hemoglobin A1C 6.5 % (<5.7)
== END 2021-06-28 02:28 | disposition home or self-care (01) ==
LOC: LBO 02:27
PROVIDERS: PCP Family Medicine; Visit Provider Family Medicine
DX: E11.9 Type 2 diabetes mellitus without complications (principal)
CPT/HCPCS: 36415; 83036

== ENCOUNTER 2021-07-16 00:38 | Outpatient (CLI) | payer MEDICARE, BC, SELFPAY ==
--- NOTE | 2021-07-16 10:09 | DI.RAD_ITS ---
Exam(s) XR LUMBAR SPINE COMPLETE EXAM: XR LUMBAR SPINE COMPLETE CLINICAL HISTORY: LBP/ r groin pain,m54.50. TECHNIQUE: 2D digital imaging was performed. COMPARISON: No exams were available for comparison FINDINGS: BONES: No fracture or destructive lesion. Vertebral bodies are unremarkable. Small endplate osteophy derek. Mild facet hypertrophy L4-5 and L5-S1.. DISKS: Intervertebral disc spaces are maintained. ALIGNMENT: Lumbar spinal alignment is within normal limits. SOFT TISSUE: Aortic calcified but normal in diameter. IMPRESSION: Mild degenerative changes. DATA REPOSITORY: RADIATION DOSE DELIVERED:
--- NOTE | 2021-07-16 10:10 | DI.RAD_ITS ---
Exam(s) XR HIP RT COMPLETE AP PELVIS EXAM: XR HIP RT COMPLETE AP PELVIS INDICATION: r hip pain,m25.559. COMPARISON: No exams were available for comparison TECHNIQUE: 2D digital imaging was performed. FINDINGS: Hip joint spaces are well maintained. Mild bilateral acetabular spurring. Mild enthesophytes at the iliac wings. Vascular calcifications. SI joints unremarkable. IMPRESSION: Mild degenerative changes of the hips. DATA REPOSITORY: RADIATION DOSE DELIVERED:
== END 2021-07-16 00:58 ==
PROVIDERS: PCP Family Medicine; Visit Provider Family Medicine
DX: M25.551 Pain in right hip (principal); M16.0 Bilateral primary osteoarthritis of hip; M54.59 Other low back pain; R10.31 Right lower quadrant pain; M47.817 Spondylosis without myelopathy or radiculopathy, lumbosacral region; G89.29 Other chronic pain
CPT/HCPCS: 72110; 73502

== ENCOUNTER 2022-01-04 02:01 | Outpatient (CLI) | payer MEDICARE, BC, SELFPAY ==
--- OUTSIDE RECORDS SUMMARY | 2022-01-04 02:05 | XMS_ITS | Encounter Summary ---
:1940 Author Organization [facility] Address [address] [place] [address] Care Team Providers Name Role Phone Unavailable Primary Care Provider Unavailable Encounter Details Date Type Department Care Team Description 01/07/2008 Before [facility] - Domonique Garcia, Converted [facility] [address] [address] [place] [phone] (Wo rk) Social History Tobacco Use Types Packs/Day Years Used Date Never Assessed Sex Assigned at Date Recorded Not on file documented as of this encounter Plan of Treatment Not on filedocumented as of this encounter Procedures Procedure Name Priority Date/Time Associated Diagnosis Comme [facility] SURGICAL PATHOLOGY Routine 01/07/2008 0:00 EDT Re sults for this procedure are i n the results section. documented in this encounter Results SURGICAL PATHOLOGY (01/07/2008 0:00 EDT) Pathology Report: SURGICAL PATHOLOGY REPORT ? [facility] Reports generated via [employer] interface contain original data; ? LAB however they are lacking the format of the original report. ? Caution should be taken when reading/interpreting unformatted reports. ? Name: ? DEWAYNE, DHIRAJ C ? Accession #: ? [id number] ? : ? 1940 (Age: 67) ??M ? Collec t Date: ? 01/07/2008 ? Location: ? [facility] ? R eceive Date: ? 01/08/2008 ? Provider: DOMONIQUE M DOBBERTIN MD ? Copy to: ? Final Pathologic Diagnosis: ? Skin of leg, left, pu nch biopsy: ? - Epidermal atrophy with spa rse superficial perivascular inflammation and ? erythrocyte extravasation. ?See comment. ? Comment: ? Multiple sections of the biopsy were reviewed. ??The histologic features are relatively subtle but includ e areas of epidermal atrophy with a sparse ? superficial lymphocytic infi ltrate and erythrocyte extravasation (correlating ?? with the petechial nature of the eruption clinically). ??The vessels within the ?? superficial dermis have thic kened jordan but there is no evidence of vasculitis. The features could represent resolution phase of pigmented purpuric dermatitis, although hemosiderin deposit ion is evident. ??There is no definitive histologic ?? correlate for the patient's severe pruritus. ??(Dr. Fernando)/[facility] ? Microscopic Description: ? Sections consist of a punch biopsy of skin to the deep reticular dermis. ?? The stratum corneum is compo sed of a relatively normal layer of basketweave ? orthokeratin. ??The epidermi s varies in thickness with areas of atrophy and ? diminished rete ridge patter n. ??The keratinocytes show car stereo installer maturation with a preserved granular layer. ?? There is no appreciable spongiosis. ??In some areas, ?? the basal zone appears somew hat squamatized but active interface inflammation is not evident. ??The superfici al dermis has slightly dilated, small caliber vessels lined by plump endothelial c ells. ??The jordan of the vessels appear thickened by hyalinized material that sta ins on sections prepared with PAS stain. ??There is a sparse perivascular and inte rstitial lymphocytic infiltrate. ??There is ? erythrocyte extravasation. ? ?The collagen bundles in the deeper reticular dermis are somewhat swollen but sti ll have a fenestrated pattern. ??No amyloid is ? identified on sections prepa red with congo red stain. ??Multiple additional ? deeper sections show similar features. ??(Dr. Fernando)/kmm ? Document reviewed and electr onically signed by: ? Carine Fernando MD ? Report ??Date: 01/14/2008 13 :35 ? By the signature above, the attending physician certifies that he/she has ? personally conducted a gross and/or microscopic examination of the described ? specimens and rendered or co nfirmed the above diagnosis. ? Specimen(s) Received: ? L leg 3 mm punch ? Clinical History: ? Petechial rash B/L an t leg w/ severe pruritus ? Gross Description: ? Received in formalin labelled Dewayne and L leg 3 mm punch is a punch ? biopsy of [place] skin which lana sures 0.3 cm in diameter by 0.3 cm in thickness. ? Submitted intact in one aisha ette. ??(Dr. Steve)/kmm ? End of Report ? Specimen Performing Organization Address City/State/ZIP Code Phon e Number [facility] [address] [place] [address] SERVICES [facility] [address] [place] [address] documented in this encounter Visit Diagnoses Not on filedocumented in this encounter
--- OUTSIDE RECORDS SUMMARY | 2022-01-04 02:05 | XMS_ITS | Encounter Summary ---
:1940 Author Organization [facility] Address [address] [place] [address] Care Team Providers Name Role Phone Domonique Garcia MD Primary Care Provider Encounter Details Date Type Department Care Team Description 04/24/2020 Lab Requisition [facility] Outr Resulting Lab, Pathology & Laboratory Provider [facility] [address], [place] [id number] Social History Tobacco Use Types Packs/Day Years Used Date Never Assessed Sex Assigned at Date Recorded Not on file documented as of this encounter Plan of Treatment Not on filedocumented as of this encounter Procedures Procedure Name Priority Date/Time Associated Comments Diagnosis DO NOT ORDER Today 04/24/2020 9:09 EDT Results for this STANDALONE - BROAD procedure are in COVID TEST the results section. COVID-19 TESTING Routine 04/24/2020 9:09 EDT Resu lts for this procedure are i n the results section. documented in this encounter Results DO NOT ORDER STANDALONE - BROAD COVID TEST (04/24/2020 9:09 EDT) COVID-19 rt-PCR NEGATIVE Negative [facility] Result Comment: LABORATORY 2019-novel Coronavirus (2019 -nCoV) not detected by the qRT-PCR assay. Consider testing for other respiratory viruses or re-collecting for 2019-nCoV testing. Note: Optimum timing for peak viral levels du ring infections caused by 20 -nCoV have not been determined. Collection of multiple specimens from the same patient may be necessary to detect the virus. Limitations Positive results are indicat heydi of active infection with SARS-CoV-2 but do not rule out bacterial infection or co-infection with other viruses. The agent detected may not be the definite cause of diseas e. In addition, detection of viral RNA may not indicate the presence of infectious virus or that SARS-CoV-2 is the causative agent for clinical symptoms. Negative results do not prec lude SARS-CoV-2 infection and should not be used as the sole basis for patient management decisions. Negative results must be combined with clinical observations, patient his tory, and epidemiological in formation. False negative results may also occur if amplification inhibitors are present in the specimen or if inadequate numbers of organisms are present in the specimen. Op timum specimen types and landon ing for peak viral levels during infections caused by SARS-CoV-2 have not been fully determined. Collection of multiple specimens (types and time points) from the same patient may be necessary to detect the virus. The test was validated for u se with upper respiratory specimens obtained via nasopharyngeal or oropharyngeal swabs in VTM, UTM, M4, M5, M6, saline, and MTM media. The performance of this test has not be en established for other spe cimens. Specimens collected using other FDA recommended Specimen Collection Materials listed in the FDA COVID-19 [employer] communication (October 07, 2019) are pr ocessed with the caveat that they were not all validated for use with this test and the result must be interpreted in this context. Furthermore, a false negative results may occur if a specimen is improperly collected, transported or handled. If the virus mutates in the RT-PCR target region, SARS-CoV-2 may not be detected or may be detected less predictably. Inhibitors or other types of interference may produce a false negative result. An interference study evaluating the effect of common cold medications was not performed. This test is not FDA-cleared but its performance characteristics were established by our CLIA-certified, CAP-accredited, high complexity laboratory in accordance with CLIA regulations, [employer] (CAP) guidel jerry (Sep 30, 2019), and FDA guidance (Sep 11, 2019). This test is only for use un dario the Food and Drug Administration's Emergency Use Authorization. Specimen Swab - Entire nasopharynx (body structur e) Performing Organization Address City/State/ZIP Code Phon e Number [facility] [place] COVID-19 TESTING (04/24/2020 9:09 EDT) COVID-19 rt-PCR NEGATIVE Negative [facility] Result Comment: LABORATORY 2019-novel Coronavirus (2019 -nCoV) not detected by the qRT-PCR assay. Consider testing for other respiratory viruses or re-collecting for 2019-nCoV testing. Note: Optimum timing for peak viral levels du ring infections caused by 20 -nCoV have not been determined. Collection of multiple specimens from the same patient may be necessary to detect the virus. Limitations Positive results are indicat heydi of active infection with SARS-CoV-2 but do not rule out bacterial infection or co-infection with other viruses. The agent detected may not be the definite cause of diseas e. In addition, detection of viral RNA may not indicate the presence of infectious virus or that SARS-CoV-2 is the causative agent for clinical symptoms. Negative results do not prec lude SARS-CoV-2 infection and should not be used as the sole basis for patient management decisions. Negative results must be combined with clinical observations, patient his tory, and epidemiological in formation. False negative results may also occur if amplification inhibitors are present in the specimen or if inadequate numbers of organisms are present in the specimen. Op timum specimen types and landon ing for peak viral levels during infections caused by SARS-CoV-2 have not been fully determined. Collection of multiple specimens (types and time points) from the same patient may be necessary to detect the virus. The test was validated for u with upper respiratory specimens obtained via nasopharyngeal or oropharyngeal swabs in VTM, UTM, M4, M5, M6, saline, and MTM media. The performance of this test has not be en established for other spe cimens. Specimens collected using other FDA recommended Specimen Collection Materials listed in the FDA COVID-19 [employer] communication (October 07, 2019) are pr ocessed with the caveat that they were not all validated for use with this test and the result must be interpreted in this context. Furthermore, a false negative results may occur if a specimen is improperly collected, transported or handled. If the virus mutates in the RT-PCR target region, SARS-CoV-2 may not be detected or may be detected less predictably. Inhibitors or other types of interference may produce a false negative result. An interference study evaluating the effect of common cold medications was not performed. This test is not FDA-cleared but its performance characteristics were established by our CLIA-certified, CAP-accredited, high complexity laboratory in accordance with CLIA regulations, College of [employer] an Pathologists (CAP) guidel jerry (Sep 30, 2019), and FDA guidance (Sep 11, 2019). This test is only for use un dario the Food and Drug Administration's Emergency Use Authorization. Performing Lab [facility] LABORATORY SERVICES Specimen Swab Performing Organization Address City/State/ZIP Code Phon e Number [facility] [address] [place] [address] [facility] [place], [place] documented in this encounter Visit Diagnoses Not on filedocumented in this encounter Care Teams Continuous Process Machine Operator Relationship Specialty Start Date End Date Domonique Garcia MD PCP - General 01/09/10 [facility] [address] [place] [phone] documented as of this encounter
--- OUTSIDE RECORDS SUMMARY | 2022-01-04 02:05 | XMS_ITS | Encounter Summary ---
:1940 Author Organization [facility] Address [address] [place] [address] Care Team Providers Name Role Phone Domonique Garcia MD Primary Care Provider Encounter Details Date Type Department Care Team Description 02/01/2010 Results Only [facility] Nabor Hallman DO Laboratory Services - [address] [place] [address] [place] [address] [place] [address] [phone] Social History Tobacco Use Types Packs/Day Years Used Date Never Assessed Sex Assigned at Date Recorded Not on file documented as of this encounter Plan of Treatment Not on filedocumented as of this encounter Procedures Procedure Name Priority Date/Time Associated Diagnosis Comme [facility] SURGICAL PATHOLOGY Routine 02/01/2010 0:00 EDT Re sults for this procedure are i n the results section. documented in this encounter Results SURGICAL PATHOLOGY (02/01/2010 0:00 EDT) Pathology Report: SURGICAL PATHOLOGY REPORT ? [facility] Reports generated via [employer] interface contain original data; ? LAB however they are lacking the format of the original report. ? Caution should be taken when reading/interpreting unformatted reports. ? Name: ? DEWAYNE, PEREZ C ? Accession #: ? [id number] ? : ? 1940 (Age: 69) ??M ? Collec t Date: ? 02/01/2010 ? Location: ? [facility] ? Re ceive Date: ? 02/02/2010 ? Provider: NABOR MITZ DO ? Copy to: DOMONIQUE M DOBBERTIN M D ? Final Pathologic Diagnosis: ? Colon, ascending, carline yp, biopsy: ? - Cauterized hyperplastic po lyp. ? Document reviewed and electr onically signed by: ? BO RANGEL MD ? Report ??Date: 02/06/2010 16 :16 ? By the signature above, the attending physician certifies that he/she has ? personally conducted a gross and/or microscopic examination of the described ? specimens and rendered or co nfirmed the above diagnosis. ? Specimen(s) Received: ? 3 mm ascending colon polyp ? Clinical History: ? Polyp ? Gross Description: ? Received in Bobby' s fixative labelled Dewayne, Perez and 3.0 mm ? ascending colon polyp is a 0.2 x 0.2 x 0.2 cm pink-sanford tissue submitted in a ?? single cassette. ??(L. Flemi ng)/cjh ? End of Report ? Specimen Performing Organization Address City/State/ZIP Code Phon e Number [facility] [address] [place] [address] SERVICES [facility] [address] [place] [address] documented in this encounter Visit Diagnoses Not on filedocumented in this encounter Care Teams Visiting Teacher Relationship Specialty Start Date End Date Domonique Garcia MD PCP - General 01/09/[address] [place] [phone] documented as of this encounter
--- OUTSIDE RECORDS SUMMARY | 2022-01-04 02:05 | XMS_ITS | Encounter Summary ---
:1940 Author Organization [place] [address] Care Team Providers Name Role Phone Domonique Garcia MD Primary Care Provider Encounter Details Date Type Department Care Team Description 03/04/2016 Telephone Dermatology at [facility] Gelacio Quesada MD [address] [place] [address] [facility]-DERMATOLOGY [phone] [place], [place] [address] (Wo rk) Social History Tobacco Use Types Packs/Day Years Used Date Never Smoker Smokeless Tobacco: Never Used Sex Assigned at Date Recorded Not on file documented as of this encounter Miscellaneous Notes Telephone Encounter - Sharon PikeCLEOPATRA - 03/04/2016 3:06 PM EDT [facility] Chief Complaint: BCC History of Present Illness: Referring Physician: Jayson Linares MD Tumor type: basal cell carcinoma Location of Skin Cancer: left lower cheek Duration of Presence: 1 year Previous Treatment: Yes biopsy Symptoms: [] Pain [x] Bleeding [x] Crusting [] Other [] None Previous History of Skin Cancer: [x] None [] List: Family History of Skin Cancer [x] None [] Melanoma [] Basal cell [] Squamous cell [] Other: Review of Systems: Check all that apply regarding other health problems Skin Hematological Eyes/Ears/Nose/Throat [x] Normal [x] Normal [] Normal [] Thick scars/keloids [] Anemia [] Glaucoma [] Poor wound healing [] Bleeding problems [] Hearing aid - hard of hearing, but no aids [] Herpes infection/cold sores [] Enlarged lymph nodes [] Cosmetic surgery [] Other [] Other [x] Other Had catarac surgery Cardiovascular Respiratory GI/Renal [] Normal [x] Normal [x] Normal [] Angina (chest pain) [] Emphysema [] Colitis [] Heart attack (Date ) [] COPD [] Stomach ulcer [] Artificial heart valve [] Asthma [] Kidney disease [] Pacemaker/defib [] Other [] Other [x] HTN [x] Other triple bypass heart surgery [place] [facility] [place] Musculoskeletal Endocrine Infections [] Normal [] Normal [x] None [] Arthritis [] Thyroid disease [] HIV/AIDS [] Artificial joint (Year ) [x] Diabetes Type II [] Hepatitis (type ) [x] Other Moody in neck bad discs 2011 - Done at [facility], Dr. Flores [] Other [] Tuberculosis [] Other Neurological Psychiatric [x] Normal [x] Normal [] Stroke [] Anxiety [] Seizures [] Depression [] Mental status change [] Other [] Other Do you take antibiotics prior to having a dental or any other procedure No Medical Problems (not listed above): There is no problem list on file for this patient. Hypertension Hyperlipidema Diabetes type II Surgical history (not listed above): No past surgical history on file. 2013- Neck disk repair / Moody placed in neck. Done at [facility] by Dr. Olvera -1989- [facility] [place]- Triple Bypass heart surgery Physical Limitations: None Do You Take [] aspirin [] Plavix [] Coumadin [] Other blood thinners/anti- platelet medications [x] None List Other Medications (prescription and over the counter including vitamins): Current Outpatient Prescriptions Medication Sig Dispense Refill ??? furosemide (LASIX) 20 mg Tablet Take 20 mg by mouth 2 times daily. ??? fluorouracil (EFUDEX) 5 % Cream Apply topically to affected area on the scalp twice daily for 3 to 4 weeks as directed. 40 g 0 ??? lovastatin (MEVACOR) 40 mg tablet Take 40 mg by mouth 2 times daily (after meals). Indications: Mixed Hyperlipidemia ??? lisinopril (PRINIVIL;ZESTRIL) 20 mg tablet Take 20 mg by mouth daily. Indications: Hypertension ??? metFORMIN (GLUCOPHAGE) 850 mg tablet Take 850 mg by mouth 3 times daily (with meals). Indications: Type 2 Diabetes Mellitus ??? atenolol (TENORMIN) 50 mg tablet 50mg, PO, Once daily ??? glipiZIDE (GLUCOTROL) 2.5 mg 24 hr tablet 2.5M-2 Tablet(s), PO, Once daily No current facility-administered medications for this visit. Medication Allergies: Allergies Allergen Reactions ??? Nsaids (Non-Steroidal Anti-Inflammatory Drug) Other (See Comments) Elev. 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 Marital Status [] S [x] M [] D [] W [] Dentures [x] Glasses [] Contact Lenses Smoking No Packs/day Alcohol Yes How much once month. documented in this encounter Plan of Treatment Not on filedocumented as of this encounter Visit Diagnoses Not on filedocumented in this encounter Care Teams Polymerization Helper Relationship Specialty Start Date End Date Domonique Garcia MD PCP - General 03/05/[address] [place] [address] [address] [place] [address] documented as of this encounter
--- OUTSIDE RECORDS SUMMARY | 2022-01-04 02:05 | XMS_ITS | Encounter Summary ---
:1940 [place] [address] Care Team Providers Name Role Phone Domonique Garcia MD Primary Care Provider Reason for Visit Reason Comments Medication Refill Encounter Details Date Type Department Care Team Description 06/28/2018 Refill Dermatology at [facility] Rose Mary Remy MD Tinea pedis, [facility] unspecified laterality [address] [place] [address] [facility] [phone] RD-DERMATOLOGY [place] [address] (Wo rk) Social History Tobacco Use Types Packs/Day Years Used Date Never Smoker Smokeless Tobacco: Never Used Sex Assigned at Date Recorded Not on file documented as of this encounter Plan of Treatment Not on filedocumented as of this encounter Visit Diagnoses Diagnosis Tinea pedis, unspecified laterality documented in this encounter Care Teams Thermodynamic Physicist Relationship Specialty Start Date End Date Domonique Garcia MD PCP - General 03/05/[address] [place] [address] documented as of this encounter
--- OUTSIDE RECORDS SUMMARY | 2022-01-04 02:05 | XMS_ITS | Clinical Summary ---
:1940 Author Organization [facility] Address [place] [id number] Care Team Providers Name Role Phone Domonique Garcia MD Primary Care Provider Allergies Active Allergy Reactions Severity Noted Date Comments Diazepam Other (See Comments) 04/03/2016 Unsure of reaction / unaware of radha rgy Nsaids (Non-Steroidal Other (See Comments) Medium Elev. LFTs Anti-Inflammatory Drug) Medications Medication Sig Dispensed Refills Start Date End Date Status atenolol (TENORMIN) 50mg, PO, Once daily 0 6 Active 50 mg tablet glipiZIDE 2.5M-2 0 02/10/2006 Active (GLUCOTROL) 2.5 mg Tablet(s), PO, Once 24 hr tablet daily lovastatin (MEVACOR) Take 40 mg by mouth 0 Active 40 mg 2 times daily (after tabletIndications: meals). Indications: mixed hyperlipidemia Mixed Hyperlipidemia lisinopril Take 2.5 mg by mouth 0 Active (PRINIVIL;ZESTRIL) daily. Indications: 20 mg high blood pressure tabletIndications: hypertension metFORMIN Take 850 mg by mouth 0 Active (GLUCOPHAGE) 850 mg 3 times daily (with tabletIndications: meals). Indications: type 2 diabetes Type 2 Diabetes mellitus Mellitus furosemide (LASIX) Take 20 mg by mouth 0 Active 20 mg Tablet 2 times daily. ketoconazole APPLY TOPICALLY 90 g 3 06/29/2018 Active (NIZORAL) 2 % DAILY. USE NEEDED CreamIndications: BETWEEN TOES. Tinea pedis, unspecified laterality Additional Information Patient not taking. Reported on 04/14/2019 allopurinol (ZYLOPRIM) 300 mg Tablet Take 300 mg by mouth daily. 0 Active Active Problems No known active problems Immunizations Name Administration Dates Next Due Influenza Vaccine, Whole 06/17/2006, 05/20/2005 Social History Tobacco Use Types Packs/Day Years Used Date Never Smoker Smokeless Tobacco: Never Used Sex Assigned at Date Recorded Not on file Last Filed Vital Signs Vital Sign Reading Time Taken Comments Blood Pressure 123/69 04/22/2016 8:03 AM EDT Pulse 76 04/22/2016 8:03 AM EDT Temperature - - Respiratory Rate - - Oxygen Saturation 97% 03/05/2012 3:10 PM EDT Room ai r @ rest Inhaled Oxygen Concentration - - Weight 91.2 kg (201 lb) 03/05/2012 3:10 PM EDT Dressed Height 177.8 cm (5' 10) 03/05/2012 3:10 PM EDT Body Mass Index 28.84 03/05/2012 3:10 PM EDT Plan of Treatment Health Maintenance Due Date Last Done Comments Covid-19 Vaccine (#1) 1945 Hepatitis C Screening 09/18/1959 Tdap adult 1960 Tetanus vaccine 1960 Zoster vaccine (1 of 2) 09/18/1991 Advance Directive 1996 Pneumoccocal Vaccine: 65+ (1 of 1 - 2006 PPSV23) Influenza (Flu) vaccine (1 of - 03/14/2021 06/17/2006, Influenza standard series) Insurance Payer Benefit Plan / Subscriber ID Effective Phone Address T ype Group Dates MEDICARE MEDICARE PART [id number] 2008-Prese [phone] [place] [address] [employer] BCBS [id number] 2018-Prese [address] [facility] [place] [address] [place] [phone] Care Teams Procedure Tech Relationship Specialty Start Date End Date Domonique Garcia MD PCP - General 03/05/[address] [place] [address]
--- OUTSIDE RECORDS SUMMARY | 2022-01-04 02:05 | XMS_ITS | Encounter Summary ---
:1940 [place] [address] Care Team Providers Name Role Phone Domonique Garcia MD Primary Care Provider Reason for Visit Reason Comments Skin Lesion rough spots on the scalp and abdomen Encounter Details Date Type Department Care Team Description 04/04/2017 Office Visit Dermatology at [facility] Rose Mary Remy MD Tinea pedis, unspecified laterality; [facility] BCC (basal cell carcinoma); [address] Seborrheic keratosis; [place] [address] [facility] Actinic keratosis; [phone] RD-DERMATOLOGY Brock angioma [place], [place] [address] Social History Tobacco Use Types Packs/Day Years Used Date Never Smoker Smokeless Tobacco: Never Used Sex Assigned at Date Recorded Not on file documented as of this encounter Patient Instructions Patient InstructionsRain Rivers - 04/04/2017 1:00 PM EDT Instructions for Perez: Treatment and Wound Care Instructions Your treatment today: You have had a shave ED&C of your skin (right neck), which is a removal of tissue for examination under a microscope. This wound will heal without stitches. Allow 3-6 weeks for the wound to heal. If bleeding occurs, hold firm pressure against the wound for 15 minutes. If bleeding continues, calls the office or go to your local emergency room. Please allow 1-2 weeks for the biopsy results to return. Your physician or nurse will contact you with the results by phone or letter; follow-up will be discussed at that time. Wound Care Instructions: You will need to keep the dressing placed over the wound dry and intact for 24 hours. Afterwards, perform the following wound care daily: ?? Wash your hands before changing the dressing. ?? Remove the bandage and clean the area with mild soap and water, then gently pat the area dry. ?? Apply a small amount of Vaseline to the area, then cover the wound with a band-aid. Change your dressing daily until the wound is fully healed. ?? A small amount of yellow drainage is part of normal healing. The area might appear as a small depression with redness around the edge of the wound. This is normal. ?? Please contact the office you you notice any of the following signs of infection: increased tenderness, pain, drainage, or redness that becomes hot or hard around the wound. If you have further questions or concerns, please call the office at [phone]. If it is after 5PM, or a holiday or weekend, please call [phone] and ask for the Automobile Contract Clerk on-call. You were treated today with Liquid Nitrogen. Liquid nitrogen is extremely cold, and freezes the surface of the skin, causing the lesion to flake off. Treatment with liquid nitrogen can be uncomfortable, but discomfort should subside after a couple of hours. The area treated will look red and irritated, and it may blister up or turn dark, then fall off. This is normal! 1. Tinea Pedis (foot fungus): -Rx: Ketaconazole - apply between the toes once daily as needed to affected areas. 2. Seborrheic Keratoses -We recommend OTC Amlactin lotion to help soften these lesions and help with itching. documented in this encounter Progress Notes Amish Remy MD - 04/04/2017 1:00 PM EDT Images from the original note were not included. DERMATOLOGY - ESTABLISHED PATIENT FOLLOW-UP Date of service: 04/04/2017 Perez Buchanan : 1940, 76 y.o. Chief Complaint: Chief Complaint Patient presents with ??? Skin Lesion rough spots on the scalp and abdomen HPI: Perez Buchanan is a 76 y.o. male last seen by 03/2016. Mr. Buchanan returns today for his annual skin examination with two areas of concern. He has a few rough spots on the scalp. He also has a question about the lesions on his chest and abdomen--Why do I have these red spot popping up all over. SKIN HISTORY: 02/26/2016 - BCC, left lower cheek; s/p Mohs Actinic keratoses, s/ Efudex Seborrheic keratoses ?? Medications: Current Outpatient Prescriptions Medication Sig Dispense Refill [...] No current facility-administered medications for this visit. Allergies: Allergies Allergen Reactions ??? Nsaids (Non-Steroidal Anti-Inflammatory Drug) Other (See Comments) Elev. LFTs ??? Diazepam Other (See Comments) Unsure of reaction / unaware of allergy Review of Systems: - General: Feels well. - Skin: No other skin concerns. Examination: - Constitutional: Patient was alert, well-appearing and in no noticeable distress. - Skin: Skin examination of the scalp, face, ears, neck, back, chest, abdomen, right and left upper extremities, right and left lower extremities, hands, feet, and buttocks was normal with the exception of the findings listed below. Genitalia not examined. Diagnosis/Skin findings/Assessment/Plan: 1. Suspected BCC - right posterior neck: 0.6 x 1.6 cm telangectatic pink plaque with a pearly border - Discussed biopsy vs biopsy plus ED&C. Patient is leaving for [place] in a month and would prefer treatment today, if possible. Discussed that ED&C has a slightly lower cure rate than excisionor Mohs, but still around 90-95% cure rate. - Patient confirmed desire to proceed with shave ED&C - Denies allergy to lidocaine or epinephrine. No pacemaker or defibrillator Procedure: Shave ED&C Location: Right posterior neck Discussed indications for procedure and expectations including risks and benefits. Verbal consent obtained. Skin prep with alcohol. Local anesthesia with 1% xylocaine, 1/100,000 epinephrine. A sample of the lesion was removed by shave technique to the level of the dermis and submitted to Pathology. The entire lesion plus a small margin was treated by curettage and electrodesiccation x3. Post-curettage defect size: 0.8x1.8 cm. Hemostasis obtained (electrocautery). There were no complications; the pt.tolerated the procedure well. The wound was dressed. Post-procedure expectations, wound care and activity restrictions were reviewed. 2. Brock Angioma - scattered trunk: multiple 0.2-0.4cm bright red, well- demarcated papules -Patient reassured. 3. Seborrheic Keratoses - scalp, trunk: multiple 0.4-0.6cm brown papules with waxy, stuck-on appearance. -Patient reassured. -Recommended moisturizing to help keep them soft. -Recommended Amlactin lotion for diffuse SKs on scalp. 4. Tinea Pedis - Macerated scaly pink plaques between toes - Explained that tinea pedis would not cause or contribute to his peripheral neuropathy -Rx: Ketaconazole - apply between the toes once daily as needed to affected areas. 5. Actinic Keratoses - right helix x1, right judaism x 3, right cheek x1, left helix x1. Procedure Note: Procedure: Destruction of lesions with cryotherapy. Number: 6 Location: as above Discussed procedure and expectations including risks (including risk of hypopigmentation) and benefits. Verbal consent obtained. Frozen with LN2, 15-30 second thaw time, ONCE. There were no complications; the patient tolerated the procedure well. Post-procedure expectations and wound care were reviewed. 6. History of BCC, left cheek: Well Healed Scar -H/o BCC, NER RTC: Based on pathology results, otherwise March 2018 for full skin exam, hx BCC. The following photos were obtained with patient consent: Note initiated by CHRISTELLE GRACIA LPN. Clinical scribe: Rain Rivers - I am documenting this encounter acting as the scribe for and in the presence of Amish Remy MD. I performed the above scribed service and agree with the accuracy of the documentation in this encounter. Reviewed and signed by Amish Remy MD Resident in Dermatology [facility] Staff slipman: Kailee Wall MD Section of Dermatology [facility] Level of Resident Supervision: Indirect Supervision (The supervising physician is not physically present, but is directly available for assistance in guiding the diagnosis and treatment plan). Kailee Wall MD - 04/04/2017 1:00 PM EDT I was the supervising physician working with dermatology resident Dr. Amish Remy in the dermatology clinic during this patient visit. The level of Resident supervision for this patient visit was indirect supervision with direct supervision immediately available. (definition: [facility] GME Policy Statement on Graduate Medical Education, Supervision of Graduate Medical Trainees) I was immediately available to Dr. Remy for questions and discussion regarding this visit. I have reviewed her encounter note details and level of service. KAILEE WALL MD Staff Physician documented in this encounter Plan of Treatment Not on filedocumented as of this encounter Procedures Procedure Name Priority Date/Time Associated Diagnosis Comme nts SPECIMEN TO Routine 04/04/2017 5:01 PM BCC (basal cell Result s for this PATHOLOGY (NON-OR) EDT carcinoma) procedure are in the results section. SURGICAL PATHOLOGY Routine 04/04/2017 5:01 PM Res ults for this REPORT EDT procedure are i n the results section. documented in this encounter Results Surgical Pathology Report (04/04/2017 5:01 PM EDT) Component Value Ref Test Analysis Performed At Patholo gist Range Method Time Signature Surgical [id number] ? Location: [facility] Pathology GEDDES Report The signing pathologist has (i) examined the relevant preparation(s) for the [facility] specimen(s) and (ii) rendered or confirmed the diagnosis(es) . HOSPITAL LAB[facility] . ?Surgic al Pathology DIAGNOSIS Skin, right posterior neck, shave biopsy ED ?? &C: ?? Basal cell carcinoma, pr obable superficial type, present at the peripheral and deep specimen edges. Electronically signed by: ??Justus DONOVAN, PhD, [facility] Verified: ??04/08/2017 ?Dermatopathologist CLINICAL INFORMATION Specimen Submitted: A - Skin, right posterior neck, shave biopsy ED ?? &C (1) Clinical History: Pearly pink plaque Clinical Diagnosis: Rule out BCC SPECIMEN PROCESSING A - Labeled/Fixative: Right posterior neck, formalin. Quantity/Size: Single, 1.2 x 1.0 x 0.1 cm. Tissue Description: Shave of sanford skin. Sections/Processing: ?? Inke d and serially sectioned with the tips in (1) and the central sections in (2) ??. (T2) ??luis carlos Specimen (Source) Anatomical Collection Method Collection Time Re ceived Time Location / / Volume Laterality 04/04/2017 5:01 PM EDT Amish Remy MD PATHOLOGY/CYTOLOGY ORDERABLE S Performing Organization Address City/State/[place] [address] Specimen to Pathology (NON-OR) (04/04/2017 5:01 PM EDT) Specimen Anatomical Collection Method Collection Time Receive d Time (Source) Location / / Volume Laterality AP Specimen 04/04/2017 5:01 PM 7 6:21 EDT PM EDT Narrative [facility] - 04/04/2017 6:21 PM EDT Specimen requisition ordered. ??Separate Pathology report to follow Resulting Agency Comment Spec In Lab Kailee Wall MD PATHOLOGY/CYTOLOGY ORDERABLE S Performing Organization Address City/State/[place] [address] documented in this encounter Visit Diagnoses Diagnosis Tinea pedis, unspecified laterality BCC (basal cell carcinoma) Basal cell carcinoma of skin, site unspe cified Seborrheic keratosis Other seborrheic keratosis Actinic keratosis Brock angioma Nevus, non-neoplastic documented in this encounter Care Teams Office Receptionist Relationship Specialty Start Date End Date Domonique Garcia MD PCP - General 03/05/[address] [place] [address] documented as of this encounter
--- OUTSIDE RECORDS SUMMARY | 2022-01-04 02:05 | XMS_ITS | Encounter Summary ---
:1940 Author Organization [facility] [place] [address] Care Team Providers Name Role Phone Domonique Garcia MD Primary Care Provider Reason for Visit Reason Comments Suture / Staple Removal Encounter Details Date Type Department Care Team Description 04/29/2016 Clinical Support Dermatology at [facility] Visit for suture Heatyana Shahid MD removal [address] [facility] [address] [facility] [phone] RD-DERMATOLOGY [place] [address] Social History Tobacco Use Types Packs/Day Years Used Date Never Smoker Smokeless Tobacco: Never Used Sex Assigned at Date Recorded Not on file documented as of this encounter Progress Notes Genoveva Sam LPN - 04/29/2016 2:15 PM EDT HPI: Patient is a 75 y.o. male with history of basal cell carcinoma, left lower cheek, s/p Mohs surgery repaired by intermediate linear who is presenting for suture removal. Denies complications. Exam: General: No acute distress Skin: Limited examination of left lower cheek shows a well-healed incision with small focal dehience. There is no erythema, dehiscence, ecchymosis, or drainage. Assessment and Plan 1. Basal cell carcinoma left lower cheek s/p Mohs surgery with intermediate linear with small focal dehience. Sutures removed. Steri-strips applied. Small amount of vaseline applied to open area and bandaid. Wound care instructions given. Discussed importance of sun protection, sun avoidance strategies, protective clothing, and sunscreen. Follow up with Dr. Linares for full skin exams. Is there another skin cancer that requires treatment? No Cc: Domonique Garcia MD documented in this encounter Plan of Treatment Not on filedocumented as of this encounter Visit Diagnoses Diagnosis Visit for suture removal Encounter for removal of sutures documented in this encounter Care Teams Wet Char Conveyor Tender Relationship Specialty Start Date End Date Domonique Garcia MD PCP - General 03/05/[address] [place] [address] documented as of this encounter
--- OUTSIDE RECORDS SUMMARY | 2022-01-04 02:05 | XMS_ITS | Clinical Summary ---
:[address] [facility] Address [address] [place] [id number] Care Team Providers Name Role Phone Domonique Garcia MD Primary Care Provider Social History Tobacco Use Types Packs/Day Years Used Date Never Assessed Sex Assigned at Date Recorded Not on file Plan of Treatment Health Maintenance Due Date Last Done Comments Fall Risk Screening 2006 Care Teams School Administrator Relationship Specialty Start Date End Date Domonique Garcia MD PCP - General 01/09/[address] [place] [address]
--- OUTSIDE RECORDS SUMMARY | 2022-01-04 02:05 | XMS_ITS | Encounter Summary ---
:1940 Author Organization [facility] [place] [address] Care Team Providers Name Role Phone Domonique Garcia MD Primary Care Provider Encounter Details Date Type Department Care Team Description 04/14/2019 Office Visit Dermatology at [facility], Mia Camargo cancer screening; Prince DONOVAN Actinic keratosis; [address] [facility] Seborrheic keratoses; [place] [address] Stasis dermatitis of both legs [phone] [facility] [place], [place] [address] Social History Tobacco Use Types Packs/Day Years Used Date Never Smoker Smokeless Tobacco: Never Used Sex Assigned at Date Recorded Not on file documented as of this encounter Patient Instructions Patient InstructionsRena Panchal, [facility] - 04/14/2019 2:30 PM EDT Images from the original note were not included. Compression Stockings Your chronic swelling of the legs puts you at risk of getting ulcers and rashes of the legs! It's very important that you try to wear compression stockings during the day. ??? It has to be at least 20-30mmHg in compression strength (CCL 1) Firm Gradient Compression - This strength of compression stockings can be found over the counter at any pharmacy or through online retailers. ??? Compression stockings can be used for the following: - Moderate to severe varicose veins - Leg swelling following surgery - Stasis Dermatitis - Relief from moderate edema / lymphedema (leg and ankle swelling) - Spider veins ??? Compression stockings can be found in different sizes, styles and colors. ??? [employer] or [employer] also has them. [employer] can help you size them properly. documented in this encounter Progress Notes Amish Lovelace - 04/14/2019 2:30 PM EDT Images from the original note were not included. DERMATOLOGY - ESTABLISHED PATIENT FOLLOW-UP Date of service: 04/14/2019 Perez Buchanan : 1940, 78 y.o. Chief Complaint: Spots on scalp HPI: Perez Buchanan is a 78 y.o. male last seen by Dr. Remy on 12/31/2017. Mr. Buchanan returns today for 1 year full skin exam. Notes more scaly spots on scalp and forehead. Hashad similar lesions frozen in the past SKIN HISTORY: 02/26/2016??- BCC, left lower cheek; s/p Mohs 04/03/17-BCC,:right posterior neck:ED&C Actinic keratoses, s/ Efudex Seborrheic keratoses Dermatofibroma ?? FAMILY HISTORY: No family history of skin cancer ?? SOCIAL HISTORY/OCCUPATION: Retired [place] in [place] Medications: Current Outpatient Medications Medication Sig Dispense Refill ??? ketoconazole (NIZORAL) 2 % Cream APPLY TOPICALLY DAILY. USE NEEDED BETWEEN TOES. 90 g 3 ??? furosemide (LASIX) 20 mg Tablet Take 20 mg by mouth 2 times daily. ??? lovastatin (MEVACOR) 40 mg tablet Take [...] the findings listed below. Genitalia not examined. - A female nurse was present and on standby during my examination. Diagnosis/Skin findings/Assessment/Plan: # Actinic Keratosis -0.2-0.3cm scaly irregular pink papule(s) on the scalp x6, forehead x2, and left cheek x2 - Discussed the natural history and etiology of actinic keratoses including the - Discussed premalignent potential of these lesions. -Discussed treatment options. Procedure Note: Procedure: Destruction of lesion(s) with cryotherapy. Number: 10 Location: as above Discussed procedure and expectations including risks (including risk of hypopigmentation) and benefits. Verbal consent obtained. Frozen with LN2, 15-30 second thaw time, TWICE. There were no complications; the patient tolerated the procedure well. Post-procedure expectations and wound care were reviewed. # Brock Angioma(s) Multiple 0.2-0.4cm bright red, well-demarcated papules with well formed lobules on dermoscopy scattered on chest and back -reassured pt of benign nature and that more would come with increasing age # Seborrheic keratosis. Scattered yellow to sanford stuck on papules 3-6 mm in size scattered on the back. -benign nature of lesions discussed -patient reassured. #. Stasis Dermatitis -brawny discoloration of BL lower extremities with pitting edema to mid walker. 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 AVS given to patient with compression stocking options RTC: 1 year FBSE or sooner for new concerning lesions Note initiated by BETHANIE Hennessy. I, BETHANIE Hennessy, have performed the documentation for this encounter in the presence of and acting as a scribe for Amish Lovelace MD. I performed the services which were documented by the scribe, and I agree with the accuracy of the documentation in this encounter. Amish Lovelace MD Reviewed and signed by: Amish Lovelace MD Resident in Dermatology [facility] Patient seen and evaluated with staff laboratory equipment cleaner: Kailee Lima MD Section of Dermatology [facility] Kailee Lima MD - 04/14/2019 2:30 PM EDT I directly supervised Dr. Lovelace during this office visit. Dr. Lovelace presented the history and physical exam to me. I then saw and examined this patient with Dr. Lovelace. We reviewed the history andpertinent details and I confirmed the physical findings. I agree with the details of the history and physical exam as documented in Dr. Lovelace' note. KAILEE LIMA MD Staff Physician documented in this encounter Miscellaneous Notes Addendum Note - Kailee Lima MD - 04/14/2019 2:30 PM EDT Addended by: KAILEE LIMA on: 04/14/2019 05:23 PM Modules accepted: Level of Service documented in this encounter Plan of Treatment Not on filedocumented as of this encounter Visit Diagnoses Diagnosis Skin cancer screening Screening for malignant neoplasm of the skin Actinic keratosis Seborrheic keratoses Stasis dermatitis of both legs Varicose veins of lower extremities with inflammation documented in this encounter Care Teams Operating Cost Clerk Relationship Specialty Start Date End Date Domonique Garcia MD PCP - General 03/05/[address] [place] [address] documented as of this encounter
--- OUTSIDE RECORDS SUMMARY | 2022-01-04 02:05 | XMS_ITS | Encounter Summary ---
:1940 Author Organization [facility] [place] [address] Care Team Providers Name Role Phone Domonique Garcia MD Primary Care Provider Reason for Visit Reason Comments Basal Cell Carcinoma Encounter Details Date Type Department Care Team Description 04/22/2016 Procedure visit Dermatology at [facility] Gelacio Quesada BCC (basal cell Road MD Zehra carcinoma) [address] [facility] [address] [facility] [phone] [place] [address] Social History Tobacco Use Types Packs/Day Years Used Date Never Smoker Smokeless Tobacco: Never Used Sex Assigned at Date Recorded Not on file documented as of this encounter Last Filed Vital Signs Vital Sign Reading Time Taken Comments Blood Pressure 123/69 04/22/2016 8:03 AM EDT Pulse 76 04/22/2016 8:03 AM EDT Temperature - - Respiratory Rate - - Oxygen Saturation - - Inhaled Oxygen Concentration - - Weight - - Height - - Body Mass Index - - documented in this encounter Patient Instructions Patient InstructionsBrooklyn Oliveira RN - 04/22/2016 7:45 AM EDT General Post-Operative Instructions Do not drink alcohol or take any medications containing aspirin, ibuprofen, or Vitamin E for the first two days after surgery unless it has been prescribed by a physician. These may increase the changeof bleeding. Do not smoke for a minimum of 5 days after surgery. Do not get your bandage wet. Avoid public pools and hot tubs As a rule, no exercise is permitted for 7 days. Avoid heavy lifting or any activity that will pull or strain the wound for 3 weeks minimum. Certain surgeries will require longer periods off from exercise as instructed by your doctor. Potential Complications Pain: Most patients have little or no pain. If your wound hurts, apply an ice pack for 15 minutes out of every hour until bedtime. Ice compresses should be done OVER the pressure bandage. Do not apply ice directly on the skin. Ice should be placed in a plastic bag, then wrapped in a towel and applied to the bandaged wound. A bag of frozen peas wrapped in a towel also works well. If your wound still hurts, you can take Tylenol 500 mg every 4-6 hours. Increasing pain, or pain notrelieved by Tylenol, should be reported to our office. Infection: Infection is not common when the wound is well cared for. [place] drainage or slight yellow film on your bandage or open wound is normal and is not an infection. It is also normal for the edgesof the wound to be pink or red, but redness should not spread out beyond the wound edges. If you notice any of these signs of infections, please call the clinic. ??? Increased pain or swelling around the wound ??? Redness spreading out from the wound ??? Green, thick, or foul smelling wound drainage ??? Fever or chills Bleeding: It is normal to see a small amount of blood on the pressure bandage when you remove it. Ifblood leaks out of the bandage within the first 48 hours, hold firm pressure directly over the top of the bandage without removing it for 15 minutes. If bleeding does not stop, hold pressure for another 15 minutes. If bleeding continues, call our office immediately or go to your local urgent care or emergency room. If blood accumulates under the sutured area, this is called a hematoma. Your wound will become swollen and very hard to the touch. You may experience increasing amounts of pain. This requires attention, and our office should be notified. Swelling and Bruising: These side effects are fairly common, but usually resolve in 2-3 weeks. Areasof the mouth and eye can last longer. Swelling and bruising can be reduced by applying an ice pack over the dressing for 15 minutes out of every hour for the rest of the day of surgery. Swelling around the eyes and neck are normal if you have had surgery to the forehead, eye area, nose, or cheeks. In fact, one or both eyes may swell shut. Swelling will be worse in the morning and improve during the day. If your wound is on your face, head or neck: ??? Sleep with your head raised on 2 pillows to reduce swelling ??? Do no bend over with your head lower then the level of your heart. Bend at the knees and not thewaist. If your wound is on your arm or leg: ??? Keep your arm or leg raised above your heart as much as you can, such as putting your leg on a pillow then lying down, particularly for the first 48 hours. This will help prevent swelling and promote healing. Wounds on the arm or leg may heal more slowly than other areas. ??? Use compression stocking or lennox wrap if instructed to do so. Scarring: There is always some scarring from any wound. Some people may have thickened scars, but these often flatten out in 3-6 months. Occasionally injections are used to help flatten thick scars. Time improves most scars. Wound healing actually takes 1-2 years before it is completely finished. Cover-up makeup may be used after the wound is healed. Other questions or concerns? Please do not hesitate to contact us. During regular business hours youcan call the clinic at . After 5PM and on weekends, please call the hospital number and ask for the [employer] Registrar electronic gluer. Wound Care for Sutured Wounds You should start wound care on Friday. Keep your dressing clean and dry until then. Clean your wound once a day until the sutures are removed. Supplies you will need: ??? Clean cotton swabs (Q-tips) ??? Vaseline or white petrolatum ??? Non-stick gauze (telfa pads) or band aids ??? Tape Care of the Wound 1. Assemble all supplies prior to dressing change 2. Wash your hands well with soap and water 3. Take off the old dressing. If it sticks, wet the edges of the dressing with water, or remove it in the shower. 4. Re-wash hands 5. Shower once a day with the bandage off, or clean the area under running tap water. Lather gently with soap and water, then rinse and blot dry. 6. Apply Vaseline (white petrolatum) or Aquaphor in a thin layer over the suture line. You may use aclean cotton swab to apply the ointment, rolling the swab gently over the wound. 7. Cover with a non-stick gauze thick enough to absorb any drainage and protect the wound. Skin near the surgery site may appear and feel tight. This relaxes in time. A scar is strong at 30 days, but not mature for 12 or more months. Stitches below the skin will be absorbed by the body within 2-3 months. Sometimes a stitch works itsway up through the skin. This is not necessarily a problem. If you have any questions about this, please call. If you need any help or have any questions, please call our clinic at . After 5PM and on weekends, please call the hospital number and ask for the [employer] Registrar electronic gluer. documented in this encounter Progress Notes Gelacio Quesada MD - 04/22/2016 7:45 AM EDT MOHS SURGICAL CONSULT Chief Complaint: BCC [...] [x] Other triple bypass heart surgery 1989 [facility] Musculoskeletal Endocrine Infections [] Normal [] Normal [x] None [] Arthritis [] Thyroid disease [] HIV/AIDS [] Artificial joint (Year ) [x] Diabetes Type II [] Hepatitis (type ) [x] Other Moody in neck bad discs 2011 - Done at [facility], Dr. Flores [] Other [] Tuberculosis [] [...] / Moody placed in neck. Done at by Dr. Olvera -1989- [facility]- Triple Bypass heart surgery Physical Limitations: None [...] hr tablet 2.5M-2 Tablet(s), PO, Once daily ??? fluorouracil (EFUDEX) 5 % Cream Apply topically to affected area on the scalp twice daily for 3 to 4 weeks as directed. (Patient not taking: Reported on 04/03/2016) 40 g 0 No current facility-administered medications for this visit. Medication Allergies: Allergies Allergen Reactions ??? Nsaids (Non-Steroidal Anti-Inflammatory Drug) Other (See Comments) Elev. LFTs ??? 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 Marital Status [] S [x] M [] D [] W [] Dentures [x] Glasses [] Contact Lenses Smoking No Packs/day Alcohol Yes How much once month. Physical Exam BP 123/69 (BP Location (NBP): Left arm, Patient Position: Sitting, BP Cuff Sizes: Adult (25-34 cm)) Pulse 76 General: Pleasant, well-appearing, in no acute distress. Skin:Limited examination of the left lower cheek reveals 1 x 0.8 cm crusty plaque. Assessment and Plan 1. basal cell carcinoma- left lower cheek Reviewed treatment options including wide local excision, Mohs micrographic surgery, electrodesiccation and curettage, and radiation therapy. Reviewed reconstruction options including second intention healing, linear repair, local flap, full thickness graft, and repair by Plastic Surgery or any other physician of the patient's choosing. The patient has elected to proceed with Mohs surgery. The patient has elected to have the post-Mohs defect repaired by us, and understands and acknowledges the risk of scarring. I, Brooklyn Oliveira, RN am documenting this encounter acting as a scribe for and in the presence of Dr. Quesada. I performed the above scribed services and agree with the accuracy of the documentation in this encounter. Gelacio Quesada MD Gelacio Quesada MD - 04/22/2016 7:45 AM EDT Operative Report Patient name: Perez Buchanan : 1940 Date: 04/22/2016 Staff Surgeon: Gelacio Quesada MD, PhD Attorney At Law I: Melodie Merritt, Anna Mcdonald, Brooklyn Oliveira, Alexia Augustine MD, MD Musa, Yonny Garibay MD Historiographer: Nicolle Waterman Pre-operative diagnosis: basal cell carcinoma Post-operative diagnosis: basal cell carcinoma Location: left lower cheek Procedure: Mohs micrographic surgery Indication for Mohs micrographic surgery: critical anatomic location Stages: 1 Final defect size: 2.5 x 1.6 cm Stage I The nature and purpose of the procedure, associated risks, possible consequences and complications,and alternative forms of treatment were explained in detail. Informed consent and permission to takephotographs were obtained. The site was confirmed with the patient/authorized technical sales representatives/referring physician and a pre-operative time-out was conducted with no unresolved discrepancies noted. Localanesthesia was obtained with 1% lidocaine with 1:100,000 epinephrine. The surgical site was prepped and draped in the usual sterile manner. Clinically apparent tumor was removed by excision with clinical margins and sent for step sectioning. With all visible gross tumor completely excised, the borders of the tumor were excised as a complete layer 2-3mm in thickness. Hemostasis was achieved by electrocoagulation. The excised tissue was oriented and divided into 2 sections, chromacoded, and submitted for frozen sections. The patient tolerated the procedure well and without complications. On microscopic evaluation of the frozen sections, no residual tumor was identified on the deep or outer border of the sections. The final size of the defect after complete tumor removal was 2.5 x 1.6 cm, extending to subcutaneous fat. I performed the gonzalez portions of the procedure and was otherwise immediately available for the remainder of the procedure. Gelacio Quesada MD, PhD Repair Operative Report Patient name: Perez Buchanan : 1940 Date: 04/22/2016 Staff Surgeon: Gelacio Quesada MD, PhD Attorney At Law I: Melodie Ku, Anna Mcdonald, Alexia Augustine MD Historiographer: Nicolle Waterman Clinical Diagnosis: 2.5 x 1.6 cm surgical defect secondary to Mohs microscopically controlled excision of basal cell carcinoma Location: left lower cheek Procedure: Intermediate linear closure of Mohs defect Due to the size and location of the defect resulting from the complete removal of the tumor, the postoperative risk of hemorrhage, infection, and the possibility of serious deformity from scarring, and in order to restore proper function and prevent loss of function, the defect was closed in the following manner. The nature and purpose of the procedure, associated risks, possible consequences, complications andalternative methods of treatment were explained to the patient in detail. An informed consent was obtained. The operative site was anesthetized with 1% lidocaine with 1:100,000 epinephrine. The site was prepped and draped in the usual sterile manner. Moderate undermining of the surrounding tissue was performed for tension free closure and redundant tissue excised. Deep closure was done in two layers.Superficial fascia and dermis were closed with 5-0 Monocryl sutures. The epidermal edges were meticulously approximated using 5-0 Prolene sutures. The resulting intermediate repair measured 5.6 cm. There was minimal blood loss. The surgical site was cleaned. Emollient and a pressure dressing of Xeroform and gauze were applied. The patient tolerated the procedure well and without complications. The patient was given both verbal and written instructions detailing postoperative care. Follow up for suture removal was scheduled for 7 days. The patient was discharged in good condition. I performed the gonzalez portions of the procedure and was otherwise immediately available for the remainder of the procedure. Gelacio Quesada MD, PhD documented in this encounter Plan of Treatment Not on filedocumented as of this encounter Visit Diagnoses Diagnosis BCC (basal cell carcinoma) Basal cell carcinoma of skin, site unspe cified documented in this encounter Care Teams Butt Presser Relationship Specialty Start Date End Date Domonique Garcia MD PCP - General 03/05/[address] [place] [address] [address] [place] [address] documented as of this encounter
--- OUTSIDE RECORDS SUMMARY | 2022-01-04 02:05 | XMS_ITS | Encounter Summary ---
:1940 Author Organization [facility] [place] [address] Care Team Providers Name Role Phone Domonique Garcia MD Primary Care Provider Reason for Visit Reason Comments Skin Check Follow-up Encounter Details Date Type Department Care Team Description 12/31/2017 Office Visit Dermatology at [facility] Rose Mary Toth MD Actinic keratosis; [facility] History of basal cell carcin [place]; [address] Dermatofibroma [facility] [address] [address]-DERMATOLOGY [phone] [place], [place] [address] Social History Tobacco Use Types Packs/Day Years Used Date Never Smoker Smokeless Tobacco: Never Used Sex Assigned at Date Recorded Not on file documented as of this encounter Progress Notes Alicia Toth MD - 12/31/2017 11:15 AM EDT Images from the original note were not included. DERMATOLOGY - ESTABLISHED PATIENT FOLLOW-UP Date of service: 12/31/2017 Perez Buchanan : 1940, 77 y.o. Chief Complaint: Chief Complaint Patient presents with ??? Skin Check HPI: Perez Buchanan is a 77 y.o. male last seen by myself on 04/04/2017. Mr. Buchanan returns today for for a full skin exam. He has some rough areas on his scalp that he wouldlike checked. Patient has no other concerning lesions today, nothing new, changing, growing, bleeding, or painful. SKIN HISTORY: 02/26/2016 - BCC, left lower cheek; s/p Mohs 04/03/17-BCC,:right posterior neck:ED&C Actinic keratoses, s/ Efudex Seborrheic keratoses ?? FAMILY HISTORY: No family history of skin cancer ?? SOCIAL HISTORY/OCCUPATION: Retired [place] in [place] ?? Medications: Current Outpatient Prescriptions Medication Sig Dispense Refill ??? ketoconazole (NIZORAL) 2 % Cream Apply topically daily. Use as needed between toes. 30 g 11 ??? furosemide (LASIX) 20 mg Tablet Take [...] below. Genitalia not examined. Diagnosis/Skin findings/Assessment/Plan: 1. Dermatofibroma (DF) - left hip:firm papule, centrally raised and sclerotic, with peripheral hyperpigmentation and dimpling with lateral pressure. - Benign; reassurance provided 2.Actinic keratosis-scalp(16),left helix(1):pink gritty papules - Discussed treatment options, including LN2 vs efudex - Patient expressed preference for LN2 at this time. Procedure Note: Procedure: Destruction of lesion(s) with cryotherapy. Number: 17 Location: as above Discussed procedure and expectations including risks (including risk of hypopigmentation) and benefits. Verbal consent obtained. Frozen with LN2, 15-30 second thaw time. There were no complications; the patient tolerated the procedure well. Post-procedure expectations and wound care were reviewed. 3.History of BCC:right posterior neck,left lower cheek-well healed scar -NER -Will continue to monitor RTC: 1 year, FBSE Note initiated by Che Hamlin LPN. I performed the above scribed service and agree with the accuracy of the documentation in this encounter. Reviewed and signed by: ALICIA TOTH MD Resident in Dermatology [facility] Patient seen and evaluated with staff nurse anesthesia program director: Ramone Potter MD Section of Dermatology [facility] Ramone Potter MD - 12/31/2017 11:15 AM EDT I directly supervised Dr. Alicia Toth during this office visit. Dr. Toth presented the history and physical exam to me. I then saw and examined this patient with Dr. Toth. We reviewed the history and pertinent details and I confirmed the physical findings. I agree with the details of the history and phy sical exam as documented in Dr. Toth's note. RAMONE POTTER MD Staff Physician documented in this encounter Plan of Treatment Not on filedocumented as of this encounter Visit Diagnoses Diagnosis Actinic keratosis History of basal cell carcinoma Personal history of other malignant neop lasm of skin Dermatofibroma Benign neoplasm of skin, site unspecifie d documented in this encounter Care Teams Armature And Rotor Winder Relationship Specialty Start Date End Date Domonique Garcia MD PCP - General 03/05/[address] [place] [address] documented as of this encounter
--- OUTSIDE RECORDS SUMMARY | 2022-01-04 02:05 | XMS_ITS | Encounter Summary ---
:1940 Author Organization [facility] Address [address] [place] [address] Care Team Providers Name Role Phone Unavailable Primary Care Provider Unavailable Encounter Details Date Type Department Care Team Description 01/05/2010 Results Only [facility] Nabor Hallman, Laboratory Services - [address] [place], [place] [id number] [phone] Social History Tobacco Use Types Packs/Day Years Used Date Never Assessed Sex Assigned at Date Recorded Not on file documented as of this encounter Plan of Treatment Not on filedocumented as of this encounter Procedures Procedure Name Priority Date/Time Associated Diagnosis Comme [facility] SURGICAL PATHOLOGY Routine 01/05/2010 0:00 EDT Re sults for this procedure are i n the results section. documented in this encounter Results SURGICAL PATHOLOGY (01/05/2010 0:00 EDT) Pathology Report: SURGICAL PATHOLOGY REPORT ? [facility] Reports generated via Backspaces interface contain original data; ? LAB however they are lacking the format of the original report. ? Caution should be taken when reading/interpreting unformatted reports. ? Name: ? DEWAYNE, PEREZ C ? Accession #: ? [id number] ? : ? 1940 (Age: 69) ??M ? Collec t Date: ? 01/05/2010 ? Location: ? [facility] ? Re ceive Date: ? 01/05/2010 ? Provider: NABOR MITZ DO ? Copy to: SHIRIN M DOJAYCEIN M D ? Final Pathologic Diagnosis: ? A. ?Duodenum, 2 nd portion, biopsies: ? 1. ?No specific pathologic features. ? B. ?Stomach, an tral fold, biopsy: ? 1. ?Antral muco sa with mild inflammation. ??See comment. ? C. ?Stomach, an trum, biopsies: ? 1. ?Antral muco sa with mild reactive gastropathy. See comment. ? D. ?Stomach, fu ndal ulcer, biopsy: ? 1. ?Gastric, fu ndic type mucosa with mild chronic inflammation. ? E. ?Esophagus, 44 cm, biopsies: ? 1. ?Squamous an d columnar type mucosa with intestinal metaplasia. ? 2. ? No dysplasia identi fied. ? Comment: ? In specimen (C), the antral mucosa shows reactive foveolar hyperplasia, ? negligible inflammation, and no Helicobacter pylori. ??These changes suggest a ?? chemical type injury, such as can be seen with non-steroidal anti-inflammatory drugs, alcohol, and bile ref lux. ??On specimens (B) and (D), deeper levels have ?? been examined. ??No ulcer is identified in specimen (D). 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 ??(Dr. Ciampa)/ljn ? Document reviewed and electr onically signed by: ? Robert Medley, MD ? Report ??Date: 01/11/2010 08 :27 ? By the signature above, the attending physician certifies that he/she has ? personally conducted a gross and/or microscopic examination of the described ? specimens and rendered or co nfirmed the above diagnosis. ? Specimen(s) Received: ? A. ?2nd portion duodenum ? B. ? Thickened antral fo ld ? C. ? Gastric antrum ? D. ? Fundal ulcer ? E. ? Esophagus at 44 cm ? Clinical History: ? Dysphagia; abd pain; E. R/O Hylton's ? Gross Description: ? Received in [facility]' s fixative labelled Dewayne Perez C and A ??2nd ? portion duodenum are four p ieces of tissue ranging in size from 0.2 x 0.2 x 0.2 cm to 0.6 x 0.1 x 0.1 cm. ?? Submitted intact as (A1) and (A2). ? Received in [facility]'s fixat heydi labelled Dewayne Perez C and B ??thickened ? antral fold is a single pie ce of tissue measuring 0.7 x 0.2 x 0.1 cm. ? Submitted intact as (B). ? Received in [facility]'s fixat heydi labelled Franky Buchanant C and C ??gastric ? antrum are two pieces of ti ssue measuring 0.6 x 0.1 cm and 0.5 x 0.2 x 0.1 cm. Submitted intact as (C). ? Received in [facility]'s fixat heydi labelled Perez Buchanan C and D ??fundal ulcer is a single piece of tissue measuring 0.5 x 0.2 x 0.2 cm. ??Submitted intact as ?? (D). ? Received in [facility] fixat heydi labelled Franky Buchanant C and E ??esophagus at 44 cm, R/O Hylton's are th ree pieces of tissue ranging in size from 0.2 x 0.1 x 0.1 cm to 0.2 x 0.1 x 0.1 cm. ??Submitted intact as (E). ??(C. Mygatt)/kmm ? End of Report ? Specimen Performing Organization Address City/State/ZIP Code Phon e Number [facility] [address] [place] [address] SERVICES [facility] [address] [place] [address] documented in this encounter Visit Diagnoses Not on filedocumented in this encounter
--- OUTSIDE RECORDS SUMMARY | 2022-01-04 02:06 | XMS_ITS | Encounter Summary ---
:1940 [place] [address] Care Team Providers Name Role Phone Domonique Garcia MD Primary Care Provider Reason for Visit Reason Comments Skin Lesion Consultation (Routine) - Closed Specialty Diagnoses / Procedures Referred By Contact Refer red To Contact Dermatology Diagnoses non-healing facial lesions suspicious of BCC, sprading brown multicolored mole Domonique Garcia MD [facility] [address] [place], [place] [address] [address] [place] [address] Fax: Referral ID Status Reason Start Date Expiration Date Visits V isits Requested Authorized [id number] Closed Consult, 01/23/2016 01/22/2017 1 1 [facility] Encounter Details Date Type Department Care Team Description 02/26/2016 Office Visit Dermatology at [facility] Nadeem Linares MD Neoplasm of uncertain behavior of skin; [facility] Actinic keratosis; [address] [place] [address] [facility] [phone] RD-DERMATOLOGY [place], [place] [address] Social History Tobacco Use Types Packs/Day Years Used Date Never Smoker Smokeless Tobacco: Never Used Sex Assigned at Date Recorded Not on file documented as of this encounter Patient Instructions Patient Yovana Capone - 02/26/2016 11:00 AM EDT Actinic Keratoses You have been diagnosed today with Actinic Keratosis (AK). These dry, scaly patches are considered the earliest stage in the development of skin cancer. In rare cases, an AK can progress to skin cancer. Because of this risk, AKs are usually treated. You were treated today with Liquid Nitrogen. This is the most common treatment for AKs. Liquid nitrogen is extremely cold, and freezes the surface of the skin, causing the lesion to flake off. Treatment with liquid nitrogen can be uncomfortable, but discomfort should subside after a couple of hours. The area treated will look red and irritated, and it may blister up or turn dark, then fall off. This is normal! You do not need any special treatment for the area, but you may find cold compresses and/or a light application of Vaseline soothing. For best results, do not rub or pick at the healing lesion. Expected healing time is 3-4 weeks. Please contact the Dermatology clinic at [phone] if the lesion has not fully resolved after 6 weeks. If you are calling after hours, please call the mainline at [phone] and ask for the frame aligner turbinated bone grinder. ABOUT YOUR TREATMENTS Your Treatment today: You had a biopsy of your skin (removal of a small piece of tissue for examination under microscope).You had a shave biopsy and do not have sutures. Location of your biopsy: Keep in mind the location of your biopsy site in case further treatment is necessary. Wound care Instructions: 1. Keep wound dry and covered for 24 hours then clean area with soap and water. 2. Pat dry completely 3. Cover with Vaseline and a new bandage daily, do this everyday until the wound is healed Please call [phone] if you have questions or concerns. * Please allow one or two weeks for the biopsy results to return. *Based on your biopsy results we will either call you or send you a letter with the results. *If in two weeks, you have not heard from us, please feel free to call and request your biopsy results. Caring for Your Skin Sun Protection Exposure to ultraviolet (UV) light--from the sun or tanning beds--is the most common modifiable riskfactor for skin cancer. In fact, most skin cancers are found in locations where sun exposure is highest (e.g., face, ears, and hands). Furthermore, UV exposure is associated with skin aging, including wrinkles, brown spots, and leathery skin. Recommendations ?? Generously apply a broad-spectrum water-resistant sunscreen with a Sun Protection Factor (SPF) of30 or more to all exposed skin. ?? Reapply sunscreen every 2 hours, even on cloudy days, and after swimming or sweating. ?? Preferred sunscreens: Sunscreens work by either forming a physical or a chemical barrier to ultraviolet light. Zinc oxide or Titanium dioxide are physical barriers to the sun. We recommend sunscreens that contain at least one physical barrier. Look for these brands: Neutrogena, Blue Lizard, California Baby, Vandejuan, Arabella DONOVAN. ?? Wear protective clothing. Long-sleeved shirts, pants, a wide-brimmed hat and sunglasses are all excellent choices. Some companies produce great, breathable SPF clothing (Coolibar, LL Puente, Fridays) ?? Seek shade. The sun's rays are strongest between 10a.m. And 4 p.m. Dry Skin Care Dry skin is more problematic in the winter, when the humidity is lower. Taking measures to maintain the skin's moisture will decrease dryness and itching. Recommendations ?? Bathe in lukewarm water. Wash the skin gently (avoid vigorous scrubbing); use Dove or CeraVe soapto wash dirty areas. Avoid harsh soaps such as Justa Spring, Ivory, or Dial as these can be drying. ?? Immediately after bathing, apply a bland, preferably fragrance-free moisturizer to your skin. Ointments work better than creams, which work better than lotions. Look for the following brands: Vaseline 100% petroleum jelly, Vanicream, Neutrogena, CeraVe, Cetaphil, Aveeno, Lubriderm, or Eucerin. ?? For itchy areas, you can apply hydrocortisone 1% cream (xmfb-mun-yuhmryk product) for 1-2 weeks. Do not use this medication on your face. Skin Cancer screening The incidence of skin cancer has increased dramatically in the past 20 years. The most common skin cancer types include basal cell carcinoma and squamous cell carcinoma. These often look like new moles, and they might be tender, scaly, or prone to bleeding. The most deadly form of skin cancer is melanoma, and it can affect people of all ages and skin types. Recommendations ?? We recommend performing a skin self-examination monthly to become familiar with your moles. This will help you to detect new or changing moles earlier. ?? Remember the ABCDE's of melanoma: ?? Asymmetry - Melanoma tends to grow in an asymmetric (uneven) fashion ?? Border - The border in melanoma tends to be uneven or jagged ?? Color - Melanomas often have different colors (e.g., dark brown, black, red) ?? Diameter - Look for moles that are larger than 0.6 cm (the size of a pencil eraser) ?? Evolution - This is perhaps the most important feature. Any mole that is rapidly growing or changing should be evaluated. documented in this encounter Progress Notes Niurka Gannon LPN - 02/26/2016 11:00 AM EDT Images from the original note were not included. DERMATOLOGY CONSULT NOTE Date of service: 02/26/2016 Perez Buchaann : 1940 Provider: Jayson Linares MD Chief Complaint Patient presents with ??? Skin Lesion The patient is seen at the request of DOMONIQUE GARCIA MD, who instructed the patient to be seen forevaluation of above, SKIN HX: No personal history of skin cancer HPI Perez Buchanan is a 75 y.o. year old male, new to me and to dermatology. Here today for a non-healing lesion on the left cheek which has been present for about one year. He reports this lesion does bleed when washing and drying his face. Also complains of a scaly lesion behind the left ear about two months ago. Also complains of multiple asymptomatic pigmented lesions on the face which have been present for months to years. MEDS: Current Outpatient Prescriptions Medication Sig Dispense Refill ??? lovastatin (MEVACOR) 40 mg tablet Take [...] No current facility-administered medications for this visit. ADR: Nsaids (non-steroidal anti-inflammatory drug) ROS General: feeling well Skin: denies other skin complaints MEDICAL HISTORY: There is no problem list on file for this patient. FAMILY HISTORY: No family history of skin cancer SOCIAL HISTORY/OCCUPATION: Retired [place] in [place] EXAM General: NAD, pleasant, cooperative Skin: An exam of the skin from the neck up was performed and including the bilateral arms. This includes examination of the skin of the face, ears, scalp, and neck. This examination also includes the arms per patient request. Significant skin findings: A. Left lower cheek: 1 cm x 0.7 cm eroded pearly nodule Verbal consent was given today to obtain and chart today's photo(s). Photo(s) taken by Yovana ZavalaClinical Scribe. B. Left frontal scalp x 1: Hypertrophic, 0.2-0.3cm scaly irregular pink papule Total: 1 C. Right cheek, right forehead, left postauricular: 0.4-0.6 cm pink-brown papules/plaque with waxy stuck on appearance. D. Scalp: Scattered, 0.2-0.3cm scaly irregular pink papules ASSESSMENT/PLAN: A. Likely basal cell carcinoma Procedure: Skin biopsy by shave technique Location: Left lower cheek Discussed indications for procedure and expectations including risks and benefits. Verbal consent obtained. Skin prep with alcohol. Local anesthesia with 1% xylocaine, 1/100,000 epinephrine. A sample of the lesion was removed by shave technique to the level of the dermis and submitted to Pathology. Hemostasis obtained (AlCl and/or electrocautery). There were no complications; the pt. tolerated the procedure well. The wound was dressed. Post-procedure expectations, wound care and activity restrictions were reviewed. Follow-up based on pathology results. - I advised patient that pending pathology, he may have the surgery performed in the spring as he will be leaving for [place] at the end of April. B. Hypertrophic Actinic keratoses Procedure Note: Procedure: Destruction of lesion with cryotherapy. Number: 1 Location: left frontal scalp Discussed procedure and expectations including risks (including risk of hypopigmentation) and benefits. Verbal consent obtained. Frozen with LN2, 15-30 second thaw time, TWICE. There were no complications; the patient tolerated the procedure well. Post-procedure expectations and wound care were reviewed. - Patient instructed to return to clinic for re-evaluation if lesion does not resolve with this treatment; as expected. C. Seborrheic keratoses - Discussed benign nature of lesion and provided reassurance. No treatment necessary at this time. - Etiology discussed - Explained that these are hereditary and adult-acquired. - Can develop anywhere on the body except for palms of hands and soles of feet - Discussed cosmetic options. - Advised patient to call if areas become inflamed or irritated. D. Actinic keratosis - Discussed at length treatment options for actinic keratoses including cryotherapy versus chemical treatment such as 5-FU or PDT. Discussed pros and cons of each including cryotherapy's potential for hypopigmentation and 5-FU's one month treatment course and potential for inflammation. Discussed needto not have suntan for best results from PDT; restrictions on light exposure; may need two or more PDT treatments. - Combined decision to treat with Efudex. Rx: Efudex 5% cream Apply to the scalp as discussed twice daily for 3-4 weeks 25g tube 1 RF Apply to the affected areas of sun damage as discussed in clinic either once or twice daily depending on inflammation. OK to stop all together if too much discomfort. Urged patient to call clinic if there is too much pain or infection is suspected. - OTC hydrocortisone ointment was advised should reaction become brisk. Follow up: 2-3 weeks for AK follow up s/p Efudex. Follow up: Return to clinic in 6 months - 1 year for full skin exam, or sooner if needed. A reminderletter will be sent to schedule. Patient instructed to call with questions or concerns. I am documenting this encounter acting as the scribe for and in the presence of Dr. Linares: Yovana Zavlaa, Clinical Scribe I performed the above scribed service and agree with the accuracy of the documentation in this encounter. Jayson Linares MD Butadiene Convertor Operator of Dermatology, Department of Surgery [facility] cc: DOMONIQUE GARCIA MD documented in this encounter Plan of Treatment Not on filedocumented as of this encounter Procedures Procedure Name Priority Date/Time Associated Diagnosis Comme nts SPECIMEN TO Routine 02/26/2016 11:14 AM Neoplasm of Results for this PATHOLOGY (NON-OR) EDT uncertain behavior pro cedure are in of skin the results section. SURGICAL PATHOLOGY Routine 02/26/2016 11:14 AM Re sults for this REPORT EDT procedure are i n the results section. documented in this encounter Results Surgical Pathology Report (02/26/2016 11:14 AM EDT) Component Value Ref Test Analysis Performed At [facility] gist Range Method Time Signature Surgical [id number] ?Location: [facility] Report The signing pathologist has (i) examined the relevant preparation(s) for the MEMORIAL specimen(s) and (ii) rendered or confirmed the diagnosis(es) . HOSPITAL LABORATORY . ?Surgic al Pathology DIAGNOSIS SKin, left lower cheek, shave biopsy: ??Basal cell carcinoma, present at the peripheral and martha p specimen edges. Electronically signed by: ??Justus DONOVAN, PhD, Lindy Verified: ??02/29/2016 ?Dermatopathologist CLINICAL INFORMATION Specimen Submitted: A - SKin, Left lower cheek, Shave biopsy: ??-Basal cell carcinoma, ulcerated, transected. Clinical History: 1 x 0.7 cm eroded pearly nodule Clinical Diagnosis: BCC SPECIMEN PROCESSING A - Labeled/Fixative: Left lower cheek, formalin. Quantity/Size: Single, 0.7 x 0.5 x 0.2 cm. Tissue Description: Shave of a white, crusted skin papule. Sections/Processing: Inked and trisected (fragmented). (T1) ??sns Specimen (Source) Anatomical Collection Method Collection Time Re ceived Time Location / / Volume Laterality 02/26/2016 11:14 AM EDT Jayson Linares MD PATHOLOGY/CYTOLOGY ORDERABLE S Performing Organization Address City/[facility]/[place] [address] Specimen to Pathology (NON-OR) (02/26/2016 11:14 AM EDT) Specimen Anatomical Collection Method Collection Time Receive d Time (Source) Location / / Volume Laterality AP Specimen 02/26/2016 11:14 02/26/2016 AM EDT 12:41 PM EDT Narrative [facility] - 02/26/2016 12:41 PM EDT Specimen requisition ordered. ??Separate Pathology report to follow Resulting Agency Comment Spec In Lab Jayson Linares MD PATHOLOGY/CYTOLOGY ORDERABLE S Performing Organization Address City/[facility]/[place] [address] documented in this encounter Visit Diagnoses Diagnosis Neoplasm of uncertain behavior of skin Actinic keratosis Seborrheic keratosis Other seborrheic keratosis documented in this encounter Care Teams Wheel Filler Relationship Specialty Start Date End Date Domonique Garcia MD PCP - General 03/05/[address] [place] [address] documented as of this encounter
--- OUTSIDE RECORDS SUMMARY | 2022-01-04 02:06 | XMS_ITS | Encounter Summary ---
:1940 Author Organization [facility] [place] [address] Care Team Providers Name Role Phone Domonique Garcia MD Primary Care Provider Reason for Visit Reason Comments Preoperative Cardiovascular Encounter Details Date Type Department Care Team Description 03/05/2012 Office Visit Cardiology at [facility] [place], Preoperative cardiovascular examination (Primary Dx); [facility] MD Blanca T2DM (type 2 diabetes mellitus); [facility] HTN (hypertension); [place], [place] [address] (hyperlipidemia) [id number] CARDIOLOGY DEPT. [phone] [place], [place] [address] Social History Tobacco Use Types Packs/Day Years Used Date Never Smoker Smokeless Tobacco: Never Used Sex Assigned at Date Recorded Not on file documented as of this encounter Last Filed Vital Signs Vital Sign Reading Time Taken Comments Blood Pressure 138/80 03/05/2012 3:10 PM EDT Lt arm si tting Pulse 80 03/05/2012 3:10 PM EDT Regular Temperature - - Respiratory Rate - - Oxygen Saturation 97% 03/05/2012 3:10 PM EDT Room ai r @ rest Inhaled Oxygen Concentration - - Weight 91.2 kg (201 lb) 03/05/2012 3:10 PM EDT Dressed Height 177.8 cm (5' 10) 03/05/2012 3:10 PM EDT Body Mass Index 28.84 03/05/2012 3:10 PM EDT documented in this encounter Progress Notes Willian Carpio MD - 03/05/2012 4:16 PM EDT PATIENT: Perez Buchanan : 1940 CC: Pre-op evaluation HPI: Pt is a/an 71 y.o. M with a PMHx notable for CAD (s/p 3v CABG; LOPEZ to LAD, CARI to RCA, and SVG to OM), T2DM, HLD, HTN, who comes to clinic today for pre- operative evaluation in anticipation of laminectomy/discectomy. He has been feeling well since his CABG. He continues to take his statin, Bblocker, ACEi. He was on daily ASA until he was found to have an ulcer in the upper part of his stomach and at that time he was asked to discontinue this medication. His angina was retrosternal pressure that did not radiate and happened with rest and exertion; this has not recurred since that time. He is physically active and was able to walk on a treadmill for ~30 min daily without symptoms and currently is refinishing a couple of houses; he is limited only by MSK/neurologic pain at this time. He has had no allergic reactions to anesthesia that he is aware of. He denies any LE swelling, palpitations, chest pain, SOB, REYES, orthopnea, PND, or LE claudication. Per his report he had a TTE performed last week at [facility] where he was told that one valve wasa little leaky and one chamber was a little large but that it was overall unchanged from a prior 3 years ago in [place]; this was done for palpitations which were ultimately found to be related to a stomachissue. ROS: GENERAL: -wt change, -fatigue, -fever, -chills, -night sweats EYE: +glasses/contact use EAR: -hearing loss NOSE/SINUSES: -epistaxis RESPIRATORY: -SOB, -wheeze, -cough CARDIAC: -CP, -palpitations, -dyspnea on exertion, -orthopnea, -PND GI: -loss of appetite, -nausea/vomiting, -dysphagia, -change in BM frequency, +heartburn, -change instool color, -diarrhea/constipation, -abdominal pain URINARY: -change in frequency, -hesitancy, -polyuria, -dysuria, -hematuria MUSCULOSKELETAL: -weakness, -change in ROM, +neck pain EXTREMITIES/SKIN: -easy bruising, -swelling NEUROLOGICAL: -MONZON, -LOC, -numbness/tingling, -dizziness PMHx: # CAD - s/p 3v CABG (1989): CARI to RCA, LOPEZ to LAD, SVG to OM # T2DM # HLD # HTN # Chronic neck/low back pain MEDICATIONS: Outpatient prescriptions marked as taking for the 03/05/12 encounter (Office Visit) with BLANCA ISLAS Medication Sig Dispense Refill ??? lovastatin (MEVACOR) [...] hr tablet 2.5M-2 Tablet(s), PO, Once daily ALLERGIES: Allergies Allergen Reactions ??? Nsaids CIS - Elev. LFTs SocHx: Tob: Never EtOH: Very little; one drink/wk Illicits: None; no OTCs FamHx: Father (60s): TN Sister (60s): TN, CHF, T2DM PHYSICAL EXAM: Blood pressure 138/80, pulse 80, height 177.8 cm (5' 10), weight 91.173 kg (201 lb), SpO2 97.00%. General: Pt is WDWN, AAOx3, in NAD, pleasant and cooperative HEENT: PERRL, oropharynx without erythema or exudate Neck: Supple, no LAD, no JVD Lungs: CTAB, no increased work of breathing Cardiac: Regular without murmurs/gallops/rubs, normal S1S2 Abdomen: Soft, NTND, +BS Extremities: No edema, 2+ radial/pedal pulses bilaterally LABS: NONE RADIOLOGY: NONE STUDIES & PROCEDURES: NONE Assessment/Plan: Pt is a 71 YO male who comes to clinic for pre-operative assessment prior to planned surgery on 03/12/12. As this is non-cardiac surgery, he is at an acceptable low-risk for perioperative cardiac complications given his reported functional status (walking on treadmill, stair climbing, etc) and further t esting is not needed at this time. However, he has had revascularization and does also have diabetesand attempts should be made at reducing risk for demand ischemia by ensuring that pain is adequatelytreated, avoiding profound anemia, and ensuring good BP/HR control. Advised that he ensure to take his cardiac medications (ACEi, BBlocker, and statin) prior to his surgery. - OK to proceed with planned non-cardiac procedure - Ensure that he continues statin, BBlocker, and ACEi - Be aware of causes for increased sympathetic tone and ensure good double product control to reducerisk of demand ischemia Blanca Islas MD - 03/05/2012 4:11 PM EDT CARDIOLOGY STAFF NOTE This 71 y.o. year-old patient was seen today with Dr. Willian Carpio and was personally interviewed and examined. Agree with documentation. Appropriate data, including labs, ECGs and other diagnostic studies were independently reviewed. Clinical History: Briefly, this is a 71-year-old man with known coronary disease. In 1989 he underwent three-vessel bypass surgery at [facility] which involve placement of the LOPEZ to his LAD, CARI to his RCA, and a saphenous vein graft to his obtuse marginal branch. He has done extremely well since this time. He has had no further cardiac events. As recently as 6 months ago he was walking regularly on a treadmill and doing so without chest discomfort, dyspnea, et cetera. In recent times he has developed back problems and is scheduled for back and neck surgery at [facility] on 12 March. He continues to feel well from the perspective of his heart. He denies dyspnea or chest pain. He can climb a flight of stairs although it minutes he does so somewhat slowly. He has no nocturnal breathing problems he has no redness of his heart rhythm. He denies lightheadedness or syncope. Physical Examination: BP 138/80 Pulse 80 Ht 177.8 cm (5' 10) Wt 91.173 kg (201 lb) BMI 28.84 kg/m2 SpO2 97% Examination: On physical examination today he appeared in no acute distress. His vital signs are listed above. He had no JVD. He had no bruits. His lungs were clear. His heart exam revealed a regular rhythm without overt murmurs, rubs, or gallops. Examination of the chest was unremarkable. There were no bony deformities, no asymmetry, or other abnormalities. His abdomen was soft and nontender and he was nonedematous. Assessment: Although his current reduced functional status abs some level of uncertainty, as recently as 6 months ago before his back and neck problems became limiting he was quite active and free of symptoms. In view of his fair functional status and lack of current symptoms, it reasonable for him toproceed with noncardiac surgery, considering him at a relatively low risk of cardiac complications. He is, however, 22 years out from bypass surgery and likely has a complex picture with his coronariesand is certainly at risk of demand ischemia postoperatively. Accordingly, efforts to minimize sympathetic activation and elevation of his rates-product would be appropriate. Plan: 1. Reasonable to proceed with planned back surgery, consider him at relatively low risk of cardiac complications 2. Usual vigilant attention to avoidance of perioperative hypothermia, perioperative anemia, significant elevations of his heart rate or blood pressure, and usual attention to aggressive postoperative pain management 3. Watch closely for a typical manifestations of ischemia including dyspnea, mental status changes, arrhythmias 4. Cardiology followup as previously planned documented in this encounter Plan of Treatment Not on filedocumented as of this encounter Visit Diagnoses Diagnosis Preoperative cardiovascular examination - Primary Pre-operative cardiovascular examination T2DM (type 2 diabetes mellitus) Type II or unspecified type diabetes dionicio litus without mention of complication, not stated as uncontrolled HTN (hypertension) Unspecified essential hypertension HLD (hyperlipidemia) Other and unspecified hyperlipidemia documented in this encounter Care Teams Vacuum Drum Drier Operator Relationship Specialty Start Date End Date Domonique Garcia MD PCP - General 03/05/[address] [place], [place] [address]Y [facility] [address] [place] [address] documented as of this encounter
--- OUTSIDE RECORDS SUMMARY | 2022-01-04 02:06 | XMS_ITS | Encounter Summary ---
:1940 Author Organization [facility] [place] [address] Care Team Providers Name Role Phone Domonique Garcia MD Primary Care Provider Encounter Details Date Type Department Care Team Description 04/13/2012 Interpretation Only Radiology at [facility] nter None [address] [facility] [place] [phone] Social History Tobacco Use Types Packs/Day Years Used Date Never Smoker Smokeless Tobacco: Never Used Sex Assigned at Date Recorded Not on file documented as of this encounter Plan of Treatment Not on filedocumented as of this encounter Procedures Procedure Name Priority Date/Time Associated Diagnosis Comme nts XR CERVICAL SPINE 1 Routine 04/13/2012 4:16 PM Re sults for this VIEW EDT procedure are i n the results section. documented in this encounter Results XR Cervical Spine 1 View (04/13/2012 4:16 PM EDT) Anatomical Region Laterality Modality C-spine N/A Radiographic Imaging Specimen (Source) Anatomical Collection Method Collection Time Re ceived Time Location / / Volume Laterality 04/13/2012 4:16 PM EDT Narrative 04/13/2012 4:16 PM EDT APD Historical Result Principal Dispatcher Service Chief: ??MAMADOU ??YAZAN ESPITIA CERVICAL SPINE - SINGLE LATERAL PROJECTI ON: CLINICAL HISTORY: ??Anterior spinal disc ectomy, osteophytectomy, cervical interspace microdiscectomy. COMPARISON: ??C-arm views from February. FINDINGS: C5 through C7 anterior plate and screw f ixation is seen with interbody graft material in place. ??No evidence of fracture or hardware f ailure. Alignment is maintained. ??No prevertebral soft tissues swelling is seen. IMPRESSION: Expected postoperative appea anh without radiographic evidence of complication. Mamadou García MD AV/mn [id number] CC: Procedure Note Unknown - 01/11/2019Formatting of this n ote might be different from the original. APD Historical Result Principal Dispatcher Service Chief: MAMADOU GARCÍA CERVICAL SPINE - SINGLE LATERAL PROJECTI ON: CLINICAL HISTORY: Anterior spinal discec deena, osteophytectomy, cervical interspace microdiscectomy. COMPARISON: C-arm views from March 12, 2012. FINDINGS: C5 through C7 anterior plate and screw f ixation is seen with interbody graft material in place. No evidence of fracture or hardware eulogio lure. Alignment is maintained. No prevertebral soft tissues swelling is seen. IMPRESSION: Expected postoperative appea anh without radiographic evidence of complication. Mamadou García MD ROCIO/alberto [id number] CC: Unknown IMG DX ORDERABLES documented in this encounter Visit Diagnoses Not on filedocumented in this encounter Care Teams Manager Of Selection And Assessment Relationship Specialty Start Date End Date Domonique Garcia MD PCP - General 03/05/[address] [place] [address] documented as of this encounter
--- OUTSIDE RECORDS SUMMARY | 2022-01-04 02:06 | XMS_ITS | Encounter Summary ---
:1940 Author Organization [facility] [place] [address] Care Team Providers Name Role Phone Domonique Garcia MD Primary Care Provider Encounter Details Date Type Department Care Team Description 11/17/2012 Interpretation Only Radiology at [facility] nter None [address] [place] [address] [place] [phone] Social History Tobacco Use Types Packs/Day Years Used Date Never Smoker Smokeless Tobacco: Never Used Sex Assigned at Date Recorded Not on file documented as of this encounter Plan of Treatment Not on filedocumented as of this encounter Procedures Procedure Name Priority Date/Time Associated Diagnosis Comme nts XR CERVICAL SPINE 2 Routine 11/17/2012 9:11 AM Re sults for this OR 3 VIEWS EDT procedure are i n the results section. documented in this encounter Results XR Cervical Spine 2 Or 3 Views (11/17/2012 9:11 AM EDT) Anatomical Region Laterality Modality C-spine N/A Radiographic Imaging Specimen (Source) Anatomical Collection Method Collection Time Re ceived Time Location / / Volume Laterality 11/17/2012 9:11 AM EDT Narrative 11/17/2012 9:11 AM EDT APD Historical Result Principal Professional Security Officer: ??DANIELLE ??ESCHBACH CERVICAL SPINE: INDICATION: ??Osteophytectomy and microd iscectomy. COMPARISON: ??Cervical spine, April 14, 2012; intraoperative image intensifier films, March 12, 2012. FINDINGS: Three lateral views are performed. ??The y include neutral, flexion, and extension views. ??On a neutral view, alignment is anatomic. ??T here has been an anterior plate and fusion with intervertebral disc spacers at C5 through C7. ??With flexion and extension, there is no motion at C5 or C6. ??C6-7 is obscured by patient's overlying shoulde rs. IMPRESSION: No findings to suggest hardw are failure. ??No motion at C5-6 with flexion/extension. ??C6-7 is obscured by the shoulders dur ing flexion and extension. Danielle Trejo DO COLLIN/alberto [id number] CC: Procedure Note Unknown - 01/11/2019Formatting of this n ote might be different from the original. APD Historical Result Principal Professional Security Officer: DANIELLE TREJO CERVICAL SPINE: INDICATION: Osteophytectomy and microdis cectomy. COMPARISON: Cervical spine, April 14 012; intraoperative image intensifier films, March 12, 2012. FINDINGS: Three lateral views are performed. They include neutral, flexion, and extension views. On a neutral view, alignment is anatomic. The re has been an anterior plate and fusion with intervertebral disc spacers at C5 through C7. With flexion a nd extension, there is no motion at C5 or C6. C6-7 is obscured by patient's overlying shoulde rs. IMPRESSION: No findings to suggest hardw are failure. No motion at C5-6 with flexion/extension. C6-7 is obscured by the shoulders durin g flexion and extension. Danielle Trejo DO COLLIN/alberto [id number] CC: Unknown IMG DX ORDERABLES documented in this encounter Visit Diagnoses Not on filedocumented in this encounter Care Teams Packing And Final Assembly Supervisor Relationship Specialty Start Date End Date Domonique Garcia MD PCP - General 03/05/[address] [place] [address] documented as of this encounter
--- OUTSIDE RECORDS SUMMARY | 2022-01-04 02:06 | XMS_ITS | Encounter Summary ---
:1940 Author Organization [facility] [place] [address] Care Team Providers Name Role Phone Domonique Garcia MD Primary Care Provider Encounter Details Date Type Department Care Team Description 03/12/2012 Interpretation Only Radiology at [facility] nter None [address] [place] [address] [place] [phone] Social History Tobacco Use Types Packs/Day Years Used Date Never Smoker Smokeless Tobacco: Never Used Sex Assigned at Date Recorded Not on file documented as of this encounter Plan of Treatment Not on filedocumented as of this encounter Procedures Procedure Name Priority Date/Time Associated Diagnosis Comme nts XR FLUORO NO RAD Routine 03/12/2012 6:23 AM Resul ts for this <1HR - RADIOLOGY EDT procedure a re in USE the results section. documented in this encounter Results XR Fluoro <1Hr - Radiology Use (03/12/2012 6:23 AM EDT) Anatomical Region Laterality Modality N/A Radiographic Imaging Specimen (Source) Anatomical Collection Method Collection Time Re ceived Time Location / / Volume Laterality 03/12/2012 6:23 AM EDT Narrative 03/12/2012 6:23 AM EDT APD Historical Result Principal Lock Expert: ??CHEMO ??MARIMAR Vasquez INTRAOPERATIVE FLUOROSCOPY: A total of 8.9 seconds (1.45 mGy) of int raoperative fluoroscopy was used by Dr Edmondson. ?? There was no Radiologist present during the exam. Three spot images document the procedure. Chemo Ruiz MD [facility] [id number] CC: Procedure Note Unknown - 01/11/2019Formatting of this n ote might be different from the original. APD Historical Result Principal Lock Expert: CHEMO RUIZ INTRAOPERATIVE FLUOROSCOPY: A total of 8.9 seconds (1.45 mGy) of int raoperative fluoroscopy was used by Dr Edmondson. There was no Radiologist present during the exam. Three spot images document the procedure. Chemo Ruiz MD [facility] [id number] CC: Unknown IMG FLUORO ORDERABLES documented in this encounter Visit Diagnoses Not on filedocumented in this encounter Care Teams Crop Scout Relationship Specialty Start Date End Date Domonique Garcia MD PCP - General 03/05/[address] [place] [address] documented as of this encounter
[2022-01-04 10:25] LABS: HGB 14.8 g/dL (13.5-17.5); MCH 33.1 pg (27.0-33.0); MCHC 35.2 % (32.0-36.0); MCV 94 fL (80-95); MPV 9.7 fL (8.0-11.0); Platelet Count 175 10^3/uL (130-400); RBC 4.47 10^6/uL (4.36-5.78); RDW 13.5 % (11.8-14.1); RDW-SD 46.6 fL; WBC 7.61 10^3/uL (4.4-10.8)
[2022-01-04 10:40] LABS: Hemoglobin A1C 6.7 % (<5.7)
[2022-01-04 11:40] LABS: ALT 55 U/L (16-63); AST 29 U/L (15-37); Alkaline Phosphatase 87 U/L (46-116); Anion Gap 9.7 mmol/L (3-11); BUN 22 mg/dL (7-18); Bilirubin, Total 0.6 mg/dL (0.2-1.0); CO2 28.3 mmol/L (21.0-32.0); CREATININE 0.9 mg/dL (0.70-1.30); Chloride 99 mmol/L (98-107); Glucose 162 mg/dL (74-106); Potassium 4.2 mmol/L (3.5-5.1); Sodium 137 mmol/L (136-145); Total Protein 7.8 g/dL (6.4-8.2); Uric Acid 5.1 mg/dL (3.5-7.2)
[2022-01-04 11:51] LABS: Calculated LDL 80 mg/dL (<100); Cholesterol 145 mg/dL (<200); HDL Cholesterol 41 mg/dL (40-60); Triglyceride 124 mg/dL (<150)
== END 2022-01-04 02:02 | disposition home or self-care (01) ==
LOC: LBO 02:01
PROVIDERS: PCP Family Medicine; Visit Provider Family Medicine
DX: I10 Essential (primary) hypertension (principal); E11.9 Type 2 diabetes mellitus without complications; E78.5 Hyperlipidemia, unspecified; I48.91 Unspecified atrial fibrillation; M10.9 Gout, unspecified
CPT/HCPCS: 36415; 80053; 80061; 85027; 83036; 84550

== ENCOUNTER 2022-07-24 03:20 | Outpatient (CLI) | payer MEDICARE, BC, SELFPAY ==
[2022-07-24 12:24] LABS: HCT 41.8 % (40.0-50.0); HGB 14.3 g/dL (13.5-17.5); MCH 32.6 pg (27.0-33.0); MCHC 34.2 % (32.0-36.0); MCV 95 fL (80-95); MPV 9.6 fL (8.0-11.0); Platelet Count 194 10^3/uL (130-400); RBC 4.39 10^6/uL (4.36-5.78); RDW 13.2 % (11.8-14.1); RDW-SD 46.4 fL; WBC 7.67 10^3/uL (4.4-10.8)
[2022-07-24 13:10] LABS: Hemoglobin A1C 6.8 % (<5.7)
[2022-07-24 13:19] LABS: ALT 43 U/L (16-63); AST 26 U/L (15-37); Albumin 3.8 g/dL (3.4-5.0); Alkaline Phosphatase 103 U/L (46-116); Anion Gap 6.3 mmol/L (3-11); BUN 17 mg/dL (7-18); Bilirubin, Total 0.7 mg/dL (0.2-1.0); CO2 32.7 mmol/L (21.0-32.0); CREATININE 0.9 mg/dL (0.70-1.30); Calcium 9.3 mg/dL (8.5-10.1); Calculated LDL 80 mg/dL (<100); Chloride 100 mmol/L (98-107); Cholesterol 142 mg/dL (<200); Estimated GFR 86.34 (mL/min/1.73m2); Glucose 141 mg/dL (74-106); HDL Cholesterol 39 mg/dL (40-60); Potassium 4.2 mmol/L (3.5-5.1); Sodium 139 mmol/L (136-145); Total Protein 7.7 g/dL (6.4-8.2); Triglyceride 118 mg/dL (<150)
== END 2022-07-24 03:21 | disposition home or self-care (01) ==
LOC: LBO 03:20
PROVIDERS: PCP Family Medicine; Visit Provider Family Medicine
DX: E11.9 Type 2 diabetes mellitus without complications (principal); E78.5 Hyperlipidemia, unspecified; I10 Essential (primary) hypertension; I48.91 Unspecified atrial fibrillation
CPT/HCPCS: 36415; 80053; 80061; 85027; 83036

== ENCOUNTER → 2022-12-13 09:24 | Outpatient (BNVA) | payer MEDICARE, BC, SELFPAY | PROVIDERS: PCP Family Medicine; Referring Provider Family Medicine; Visit Provider Physical Therapy Assistant | DX: R09.89 Other specified symptoms and signs involving the circulatory and respiratory systems (principal) | CPT/HCPCS: 93922 ==

== ENCOUNTER 2023-02-28 02:48 | Outpatient (CLI) | payer MEDICARE, BC, SELFPAY ==
[2023-02-28 11:12] LABS: Hemoglobin A1C 5.9 % (<5.7)
[2023-02-28 11:30] LABS: Uric Acid 4.3 mg/dL (3.5-7.2)
== END 2023-02-28 02:49 | disposition home or self-care (01) ==
LOC: LBO 02:48
PROVIDERS: PCP Family Medicine; Visit Provider Family Medicine
DX: E11.9 Type 2 diabetes mellitus without complications (principal); M10.9 Gout, unspecified
CPT/HCPCS: 36415; 83036; 84550

== ENCOUNTER → 2023-04-15 18:05 | Outpatient (CLI) | payer MEDICARE, BC, SELFPAY ==
--- NOTE | 2023-04-15 14:45 | DI.RAD_ITS ---
Exam(s) XR ANKLE RT COMPLETE XR ANKLE LT COMPLETE EXAM: XR ANKLE LT COMPLETE CLINICAL HISTORY: PAIN IN LT ANKLE AND JOINTS OF LT FOOT-M25.572 TECHNIQUE: 2D digital imaging was performed. Three views of both ankles. COMPARISON: CR XR ANKLE RT COMPLETE from 04/15/2023 FINDINGS: BONES: No acute fracture is present. No bony destructive lesion is seen. Enthesophytes at the Achil les insertion on the calcaneus, left larger than right. JOINTS:The ankle mortise is normally aligned. Minimal degenerative changes. SOFT TISSUE: Normal vascular calcifications. IMPRESSION: No acute abnormality. DATA REPOSITORY: RADIATION DOSE DELIVERED:
== END ==
PROVIDERS: PCP Family Medicine; Visit Provider Podiatrist
DX: M25.572 Pain in left ankle and joints of left foot (principal); M25.571 Pain in right ankle and joints of right foot
CPT/HCPCS: 73610

== ENCOUNTER → 2023-07-17 13:24 | Outpatient (BNVA) | payer MEDICARE, BC, SELFPAY | PROVIDERS: PCP Family Medicine; Referring Provider Family Medicine; Visit Provider Podiatrist | DX: E11.43 Type 2 diabetes mellitus with diabetic autonomic (poly)neuropathy (principal); B35.1 Tinea unguium; R09.89 Other specified symptoms and signs involving the circulatory and respiratory systems; R23.4 Changes in skin texture; L65.9 Nonscarring hair loss, unspecified; L60.3 Nail dystrophy | CPT/HCPCS: 11721 ==

== ENCOUNTER 2023-08-04 04:45 | Outpatient (CLI) | payer MEDICARE, BC, SELFPAY ==
[2023-08-04 13:58] LABS: ALT 37 U/L (16-63); AST 18 U/L (15-37); Albumin 3.7 g/dL (3.4-5.0); Alkaline Phosphatase 93 U/L (46-116); Anion Gap 5.9 mmol/L (3-11); BUN 14 mg/dL (7-18); Bilirubin, Total 0.6 mg/dL (0.2-1.0); CO2 32.1 mmol/L (21.0-32.0); Calcium 9.1 mg/dL (8.5-10.1); Chloride 99 mmol/L (98-107); Estimated GFR 75.61 (mL/min/1.73m2); Glucose 144 mg/dL (74-106); Potassium 3.7 mmol/L (3.5-5.1); Sodium 137 mmol/L (136-145); Total Protein 7.7 g/dL (6.4-8.2)
[2023-08-04 14:07] LABS: Hemoglobin A1C 6.6 % (<5.7)
== END 2023-08-04 04:46 | disposition home or self-care (01) ==
LOC: LBO 04:45
PROVIDERS: PCP Family Medicine; Visit Provider Family Medicine
DX: E11.9 Type 2 diabetes mellitus without complications
CPT/HCPCS: 36415; 80053; 83036

== ENCOUNTER 2023-08-12 15:04 | Outpatient (REF) | payer MEDICARE, BC, SELFPAY ==
[2023-08-12 21:24] LABS: COMMENT (LAB VIEW ONLY) 114.43 mg/dL; Microalb ug/mg Crea 48.2 ug/mg Cr
== END 2023-08-12 15:05 | disposition home or self-care (01) ==
LOC: LBN 15:04
PROVIDERS: PCP Family Medicine; Visit Provider Family Medicine
DX: G62.89 Other specified polyneuropathies (principal); E11.9 Type 2 diabetes mellitus without complications
CPT/HCPCS: 82043; 82570

== ENCOUNTER → 2023-11-13 13:10 | Outpatient (BNVA) | payer MEDICARE, BC, SELFPAY | PROVIDERS: PCP Family Medicine; Referring Provider Family Medicine; Visit Provider Podiatrist | DX: M25.571 Pain in right ankle and joints of right foot (principal); E11.9 Type 2 diabetes mellitus without complications; I25.9 Chronic ischemic heart disease, unspecified; E11.51 Type 2 diabetes mellitus with diabetic peripheral angiopathy without gangrene; R60.9 Edema, unspecified; B35.1 Tinea unguium; L60.3 Nail dystrophy; M79.672 Pain in left foot; M79.671 Pain in right foot; E11.43 Type 2 diabetes mellitus with diabetic autonomic (poly)neuropathy | CPT/HCPCS: 11721 ==

== ENCOUNTER 2023-12-01 05:30 | Outpatient (CLI) | payer MEDICARE, BC, SELFPAY ==
[2023-12-01 10:43] LABS: HCT 43.9 % (40.0-50.0); HGB 14.7 g/dL (13.5-17.5); MCH 31.3 pg (27.0-33.0); MCHC 33.5 % (32.0-36.0); MCV 93 fL (80-95); MPV 9.5 fL (8.0-11.0); Platelet Count 147 10^3/uL (130-400); RDW 13.2 % (11.8-14.1); RDW-SD 45.3 fL; WBC 6.47 10^3/uL (4.4-10.8)
[2023-12-01 11:00] LABS: Hemoglobin A1C 6.4 % (<5.7)
[2023-12-01 11:57] LABS: TSH (W/Ref FT4) 2.23 uIU/mL (0.36-3.74); Vitamin B12 415 pg/mL (193-986)
== END 2023-12-01 05:31 | disposition home or self-care (01) ==
LOC: LBO 05:30
PROVIDERS: PCP Family Medicine; Visit Provider Family Medicine
DX: E11.9 Type 2 diabetes mellitus without complications (principal); G62.9 Polyneuropathy, unspecified; E03.9 Hypothyroidism, unspecified
CPT/HCPCS: 36415; 85027; 82607; 83036; 84443

== ENCOUNTER → 2024-03-18 10:22 | Outpatient (BNVA) | payer MEDICARE, BC, SELFPAY | PROVIDERS: PCP Family Medicine; Referring Provider Family Medicine; Visit Provider Podiatrist | DX: E11.51 Type 2 diabetes mellitus with diabetic peripheral angiopathy without gangrene (principal); E11.43 Type 2 diabetes mellitus with diabetic autonomic (poly)neuropathy; I25.9 Chronic ischemic heart disease, unspecified; M25.571 Pain in right ankle and joints of right foot; M79.672 Pain in left foot; L60.3 Nail dystrophy; B35.1 Tinea unguium; R60.0 Localized edema | CPT/HCPCS: 11721; 36415; 82746; 84425 ==

== ENCOUNTER 2024-03-18 15:32 | Outpatient (CLI) | payer MEDICARE, BC, SELFPAY ==
[2024-03-18 13:41] LABS: Folate 6.3 ng/mL (8.6-20.0)
[2024-03-23 12:19] LABS: Thiamine (Vitamin B1), WB 138 nmol/L (70-180)
== END 2024-03-18 15:33 | disposition home or self-care (01) ==
LOC: LBO 15:33
PROVIDERS: PCP Family Medicine; Visit Provider Podiatrist
DX: G62.9 Polyneuropathy, unspecified (principal)
CPT/HCPCS: 36415; 82746; 84207; 84425

== ENCOUNTER 2024-03-22 09:16 | Outpatient (CLI) | payer MEDICARE, BC, SELFPAY ==
[2024-03-26 12:22] LABS: Pyridoxal 5-Phosphate (PLP), P 13 mcg/L (5-50)
== END 2024-03-22 09:17 | disposition home or self-care (01) ==
LOC: LBO 09:16
PROVIDERS: PCP Family Medicine; Visit Provider Podiatrist
DX: G62.9 Polyneuropathy, unspecified (principal)
CPT/HCPCS: 84207

== ENCOUNTER → 2024-07-29 10:28 | Outpatient (BNVA) | payer MEDICARE, BC, SELFPAY | PROVIDERS: PCP Family Medicine; Referring Provider Family Medicine; Visit Provider Podiatrist | DX: L60.3 Nail dystrophy (principal); B35.1 Tinea unguium; M25.571 Pain in right ankle and joints of right foot; E11.51 Type 2 diabetes mellitus with diabetic peripheral angiopathy without gangrene; I25.9 Chronic ischemic heart disease, unspecified; R60.0 Localized edema; M79.672 Pain in left foot; E11.43 Type 2 diabetes mellitus with diabetic autonomic (poly)neuropathy; R09.89 Other specified symptoms and signs involving the circulatory and respiratory systems; L65.9 Nonscarring hair loss, unspecified; R20.8 Other disturbances of skin sensation; L60.8 Other nail disorders; R23.8 Other skin changes; L60.2 Onychogryphosis | CPT/HCPCS: 11721 ==

== ENCOUNTER 2024-10-27 02:15 | Outpatient (CLI) | payer MEDICARE, BC, SELFPAY ==
[2024-10-27 10:52] LABS: HCT 44.9 % (40.0-50.0); HGB 15.2 g/dL (13.5-17.5); MCH 32.3 pg (27.0-33.0); MCHC 33.9 % (32.0-36.0); MCV 96 fL (80-95); MPV 9.8 fL (8.0-11.0); Platelet Count 164 10^3/uL (130-400); RDW 12.8 % (11.8-14.1); WBC 6.09 10^3/uL (4.4-10.8)
[2024-10-27 11:21] LABS: COMMENT (LAB VIEW ONLY) 106.65 mg/dL; Microalb ug/mg Crea 10.2 ug/mg Cr
[2024-10-27 11:26] LABS: ALT 45 U/L (16-63); AST 24 U/L (15-37); Albumin 3.9 g/dL (3.4-5.0); Alkaline Phosphatase 97 U/L (46-116); Anion Gap 8.8 mmol/L (3-11); BUN 20 mg/dL (7-18); Bilirubin, Total 0.8 mg/dL (0.2-1.0); CO2 30.2 mmol/L (21.0-32.0); Calcium 9.4 mg/dL (8.5-10.1); Chloride 100 mmol/L (98-107); Estimated GFR 74.68 (mL/min/1.73m2); Glucose 166 mg/dL (74-106); Potassium 4.3 mmol/L (3.5-5.1); Sodium 139 mmol/L (136-145); Total Protein 7.8 g/dL (6.4-8.2); Uric Acid 7.6 mg/dL (3.5-7.2)
[2024-10-27 11:37] LABS: Calculated LDL 90 mg/dL (<100); Cholesterol 161 mg/dL (<200); HDL Cholesterol 48 mg/dL (>or=40); Triglyceride 119 mg/dL (<150)
== END 2024-10-27 02:16 | disposition home or self-care (01) ==
PROVIDERS: PCP Family Medicine; Visit Provider Family Medicine
DX: I48.91 Unspecified atrial fibrillation; M10.9 Gout, unspecified; E11.9 Type 2 diabetes mellitus without complications
CPT/HCPCS: 36415; 80053; 80061; 85027; 82043; 82570; 83036; 84550

== ENCOUNTER → 2024-12-01 10:23 | Outpatient (BNVA) | payer MEDICARE, BC, SELFPAY | PROVIDERS: PCP Family Medicine; Referring Provider Family Medicine; Visit Provider Podiatrist | DX: L60.3 Nail dystrophy; B35.1 Tinea unguium; E11.43 Type 2 diabetes mellitus with diabetic autonomic (poly)neuropathy; E11.51 Type 2 diabetes mellitus with diabetic peripheral angiopathy without gangrene; R60.0 Localized edema; R09.89 Other specified symptoms and signs involving the circulatory and respiratory systems; L65.9 Nonscarring hair loss, unspecified; R20.8 Other disturbances of skin sensation; R23.8 Other skin changes; L60.8 Other nail disorders; L53.8 Other specified erythematous conditions | CPT/HCPCS: 11721 ==

== ENCOUNTER 2025-03-02 09:33 | Outpatient (CLI) | payer MEDICARE, BC, SELFPAY ==
--- NOTE | 2025-03-02 14:30 | DI.US_ITS ---
APPROVED REPORT EXAM: Comprehensive 2D, Doppler, and color-flow Echocardiogram Patient Location: Out-Patient Jeep Mechanic: Lara Baptiste RDCS (AE) Indications: Edema, A Fib Other Information Study Quality: Fair. Technically limited study due to body habitus. Conclusion Normal left ventricular wall thickness and chamber size. Ejection fraction is 55%. No wall motion abnormalities are identified Right ventricle is not well-visualized but appears grossly normal in size Left atrium is moderately enlarged. Mild right atrial enlargement Aortic valve is sclerotic and trileaflet without stenosis or regurgitation Mitral annular calcification. Trace to mild mitral regurgitation Wall motion Left Ventricle The left ventricle is normal size. The left ventricular systolic function is normal. The left ventricular ejection fraction is within the normal range. There is normal left ventricular wall thickness. There is normal LV segmental wall motion. There is no ventricular septal defect visualized. LVEF is 55%. Right Ventricle Right ventricle is not well visualized. Right ventricular systolic function could not be assessed. Atria Left atrium is moderately dilated Right atrium is mildly dilated The interatrial septum is intact with no evidence for an atrial septal defect. Aortic Valve Aortic valve is calcified. Aortic valve is trileaflet. No hemodynamically significant valvular aortic stenosis. No aortic regurgitation is present. Mitral Valve Mild mitral annular calcification. No evidence of mitral valve stenosis. Trace to mild mitral regurgitation. Tricuspid Valve The tricuspid valve is normal in structure. There is no tricuspid valve stenosis. Trace tricuspid regurgitation. Pulmonic Valve The pulmonary valve is normal in structure. There is no pulmonic valvular stenosis. There is no pulmonic valvular regurgitation. Great Vessels The aortic root is normal in size. The ascending aorta is normal in size. The IVC was not visualized. Pericardium Technically limited subcostal imaging 2D Dimensions IVSD d PLAX 0.94 cm M: 0.6-1.2 Ao Root d 3.05 cm M: 3.1 - 3.7 LVPW d PLAX 0.90 cm M: 0.6 - 1.2 Ao Asc Diam d 3.32 cm M: 2.6 - 3.4 LVID d PLAX 4.50 cm M: 4.2 - 5.8 LVDs 3.15 cm M: 2.5 - 4.0 LV EF Teichholz 56.4 % FS 29.32 % LV EDV (Teich) 90.1 mL LV ESV (Teich) 39.3 mL Auto EF LV EDV A4C 109.3 mL LV EDV A2C 129.1 mL LV EDV BP 118.9 mL LV ESV A4C 49.3 mL LV ESV A2C 57.9 mL LV ESV BP 53.8 mL LVEF(%) A4C 54.9 % LVEF(%) A2C 55.2 % LVEF(%) BP 54.8 % LV SV A4C 60.0 ml LV SV A2C 71.2 ml LV SV BP 65.2 ml LV CO A4C 4.1 L/min LV CO A2C 4.1 L/min LV CO BP 4.1 L/min HR A4C 68.41 BPM HR A2C 57.97 BPM LV EDV Index (BP) LA Volume LA Length A4C 5.9 cm LA Length A2C 6.3 cm LA Area A4C s 18.54 cm2 LA Area A2C s 22.07 cm2 LA Vol A4C A-L 49.07 mL LA Vol A2C A-L 65.58 mL LA Vol Biplane A-L 58.4 mL LA Vol/BSA A4C A-L LA Vol/BSA A2C A-L LA Vol/BSA BP A-L 29.2 mL/m2 LA Vol A4C MOD 45.6 mL LA Vol A2C MOD 61.8 mL LA Vol BP MOD 54.3 mL RA Volume RA Area A4C 13.7 cm2 RA ESV A4C (A-L) 29.7mL RA Vol/BSA A4C A-L RA Length A4C 5.4 cm RA ESV A4C (MOD) 29.5mL LV Diastology MV E' medial 0.082 (>0.07 m/s) MV E Vmax 1.03 (0.4-1.3 m/s) MV E/E' MED 12.58 (<14) MV E' lateral 0.104 (>0.1 m/s) MV E/E' LAT 9.89 (<14) MV E' Average 0.093 m/s MV E/E'(average) 11.08 Aortic Valve AoV Vmax 2.57 m/s LVOT Vmax 1.11 m/s AoV Peak Grad 26.5 mmHg LVOT Peak Grad 4.9 mmHg AoV Area (Vmax) 1.29 cm2 LVOT VTI 0.230 m AoV VTI 0.531 m LVOT Mean Grad 3.0 mmHg AoV Mean King. 1.81 m/s LVOT SV 69.20 mL AoV Mean Grad 15.2 mmHg LVOT Diam s 1.95 cm AoV Area (VTI) 1.30 cm2 Velocity Ratio 0.43 Mitral Valve MV DT 191 (160-240 msec) MV Vmax TIPS 1.10 m/s MV Mean Grad 1.3 (<2mmHg) MV VTI 0.294 m Pulmonary Valve PV Vmax 1.33 (0.5-1.5 m/s) RVOT Vmax 0.87 m/s PV Peak Grad 7.1 mmHg RVOT Peak Gr. 3.0 mmHg PV Mean King 0.78 m/s RVOT VTI 0.160 m PV Mean Grad 3.0 mmHg RVOT Mean Gr. 1.5 mmHg Tricuspid Valve TV S' 0.10 m/s TR Vmax 2.90 m/s TR Peak Grad 33.6 mmHg
== END 2025-03-02 09:53 ==
LOC: DI 09:33
PROVIDERS: PCP Family Medicine; Visit Provider Internal Medicine Cardiovascular Disease
DX: R60.9 Edema, unspecified (principal)
CPT/HCPCS: 93306

== ENCOUNTER → 2025-04-25 08:52 | Outpatient (BNVA) | payer MEDICARE, BC, SELFPAY | PROVIDERS: PCP Family Medicine; Referring Provider Family Medicine; Visit Provider Podiatrist | DX: L60.3 Nail dystrophy (principal); B35.1 Tinea unguium; E11.43 Type 2 diabetes mellitus with diabetic autonomic (poly)neuropathy; E11.51 Type 2 diabetes mellitus with diabetic peripheral angiopathy without gangrene; R60.0 Localized edema; R09.89 Other specified symptoms and signs involving the circulatory and respiratory systems; L65.9 Nonscarring hair loss, unspecified; R20.8 Other disturbances of skin sensation; R23.4 Changes in skin texture; L60.2 Onychogryphosis; L60.8 Other nail disorders; R23.8 Other skin changes; L53.8 Other specified erythematous conditions | CPT/HCPCS: 11721 ==